=== PATIENT | male | born 1955 | race Caucasian/White ===

== ENCOUNTER 2024-05-14 07:53 | Inpatient (IN) | payer OTHER ==
[~2024-05-14] VITALS: Ht 182.9 cm; Wt 101.5 kg
[2024-05-14] VITALS (8 sets, daily range): BP systolic 119; BP diastolic 79; PULSE 79–94; RESP 13–20; TEMP 98.2; O2SAT 95–100
[2024-05-14] MEDS: DexAMETHasone SOD PHOS 10MG/1ML VIAL INJ IV ONE (08:15)
[2024-05-14 08:17] LABS: Base Excess -2.2 mmol/L (-2.0-3.0)
[2024-05-14] MEDS: ALBUTEROL SULF 2.5 MG/0.5ML(0.5%) NEB SOLN NEB ONE (08:38)
--- NOTE | 2024-05-14 09:17 | DVH ---
CHEST RADIOGRAPH Indication: sob Technique: Single frontal view of the chest was obtained COMPARISON: None FINDINGS: Lines and Tubes: None Lungs: Retrocardiac opacity may reflect atelectasis/ scarring although superimposed pneumonia difficu lt to exclude. Pleura: No effusion. No pneumothorax. Cardiomediastinal contours: Mild cardiomegaly. Bones: Unremarkable IMPRESSION: Retrocardiac opacity may reflect atelectasis/ scarring although superimposed pneumonia difficult to e xclude.
--- NOTE | 2024-05-14 09:42 | ED.PDOC ---
History of Present Illness HPI Comments 68 y/o M, with a Hx of COPD and CHF, is BIBA for c/o shortness of breath, today. Per EMS report, patient endorses on sudden and unprovoked onset of symptoms that awoke him from his sleep, this morning, at around 0700, with no relief or improvement with at-home albuterol breathing Tx use. Patient was found on scene with a SpO2 of 80% RA and was given DuoNeb breathing Tx (2.5mg Albuterol and 0.5mg Atrovent) in addition to being placed on CPAP at 10lpm O2, due to work of breathing, en route, with SpO2 increasing to 94%. Upon arrival to ED, patient endorses additional c/o throat irritation. Patient has no Hx of previous intubation in the past. Patient reports no recent strenuous activities, injuries, sick contact, travel, or substance use along with any additional pertinent or relevant Hx at time of assessment. He denies having any chest pain, cough, palpitations, fever, chills, or other associated symptoms or modifiers at this time. Chief Complaint: Shortness of Breath Time Seen by MD: 08:00 Reviewed Notes: Nurses Notes, Bicycle Subassembler Notes, Medications, Allergies Allergies: Coded Allergies: NO KNOWN ALLERGIES (Unverified , 05/14/24) Information Source: Patient, Emergency Med Personnel Mode of Arrival: EMS Severity: Moderate Timing: Hours Duration: Since onset Prehospital treatment: 12 Lead EKG, Breathing Tx (2.5 mg Albuterol, 0.5mg Atrovent ), Tube Fitter, C-Pap Past Medical History PAST MEDICAL HISTORY: CHF, COPD Surgical History: Denies all surgeries Family History Family History: Unknown Social History Smoker: Non-Smoker Alcohol: Denies ETOH Use Drugs: Denies Drug Use Lives In: Home Constitutional: denies: chills, diaphoresis, fatigue, fever, malaise, sweats, weakness, others EENTM: denies: blurred vision, double vision, ear bleeding, ear discharge, ear drainage, ear pain, ear ringing, eye pain, eye redness, hearing loss, mouth pain, mouth swelling, nasal discharge, nose bleeding, nose congestion, nose pain, photophobia, tearing, throat pain, throat swelling, voice changes, others Respiratory: reports: SOB at rest, shortness of breath, wheezing; denies: cough, hemoptysis, orthopnea, SOB with excertion, stridor, others Cardiovascular: denies: chest pain, dizzy spells, diaphoresis, Dyspnea on exertion, edema, irregular heart beat, left arm pain, lightheadedness, palpitations, PND, syncope, others Gastrointestinal: denies: abdomen distended, abdominal pain, blood streaked bowels, constipated, diarrhea, dysphagia, difficulty swallowing, hematemesis, melena, nausea, poor appetite, poor fluid intake, rectal bleeding, rectal pain, vomiting, others Genitourinary: denies: burning, dysuria, flank pain, frequency, hematuria, incontinence, penile discharge, penile sore, pain, testicle pain, testicle swelling, urgency, others Neurological: denies: dizziness, fainting, headache, left sided numbness, left sided weakness, numbness, paresthesia, pre-existing deficit, right sided numbness, right sided weakness, seizure, speech problems, tingling, tremors, weakness, others Musculoskeletal: denies: back pain, gout, joint pain, joint swelling, muscle pain, muscle stiffness, neck pain, others Integumetry: denies: bruises, change in color, change in hair/nails, dryness, laceration, lesions, lumps, rash, wounds, others Allergic/Immunocompromised: denies: Difficulty Healing, Frequent Infections, Hives, Itching, others Hematologic/Lymphatic: denies: anemia, blood clots, easy bleeding, easy bruising, swollen glands, others Endocrine: denies: excessive hunger, excessive sweating, excessive thirst, excessive urination, flushing, intolerance to cold, intolerance to heat, unexplained weight gain, unexplained weight loss, others Psychiatric: denies: anxiety, bipolar disorder, depression, hopeless, panic disorder, schizophrenia, sleepless, suicidal, others All Other Systems: Reviewed and Negative (see HPI) Physical Exam General Appearance: Moderate Distress, Obese HEENT: Normal ENT Inspection, Pharynx Normal, TMs Normal Neck: Full Range of Motion, Non-Tender, Normal, Normal Inspection Respiratory: Chest Non-Tender, Decreased Breath Sounds (diminished lung sounds at bases bilaterally), No Accessory Muscle Use, Other (on BIPAP placed by EMS en route) Cardiovascular: No Edema, No JVD, No Murmur, No Gallop, Normal Peripheral Pulses, Regular Rate/Rhythm Breast Exam: Deferred Gastrointestinal: No Organomegaly, Non Tender, No Pulsatile Mass, Normal Bowel Sounds, Soft Genitalia: Deferred Pelvic: Deferred Rectal: Deferred Extremities: Leg edema (trace pitting bilateral edema to lower extremities ), No calf tenderness, Normal capillary refill, Normal range of motion, Non-tender Musculoskeletal : Apperance: Normal Neurologic: Alert, spindle frame carver II-XII nml as Tested, No Motor Deficits, Normal Affect, Normal Mood, No Sensory Deficits Cerebellar Function: Normal Reflexes: Normal Skin: Dry, Normal Color, Warm Lymphatic: No Adenopathy Was a procedure done? Was a procedure done?: No EKG EKG : Pulse Rate (adult): 83 [place]: Normal Cardiac Rhythm: NSR Block: RBBB Hypertrophy: None ST: Normal Comments artifacts present, ST changes absent Differential Dx Considerations may include: COPD exacerbation, PNA, bronchitis, Covid19, URI, viral syndrome, pleural effusions X-Ray, Labs, Meds, VS Vital Signs Date Time Temp Pulse Resp B/P (MAP) Pulse Ox O2 Delivery O2 Flow Rate FiO2 05/14/24 10:16 84 15 129/79 05/14/24 10:04 83 05/14/24 09:00 98.2 79 15 119/79 100 4.0 36 98.2 05/14/24 08:30 100 Non-Rebreather 15.0 05/14/24 08:30 79 15 100 05/14/24 08:30 100 Non-Rebreather 15 N/A 05/14/24 08:17 98.2 72 20 119/79 (92) 95 05/14/24 08:07 70 Lab Test 05/14/24 10:10 05/14/24 09:36 05/14/24 08:09 Range/Units Troponin I High Sensitivity 9 8 </=54 ng/L White Blood Count 9.9 4.4-10.8 10^3/uL Red Blood Count 4.19 L 4.5-5.90 10^6/uL Hemoglobin 12.3 L 13.5-17.5 g/dL Hematocrit 37.5 L 41.0-53.0 % Mean Corpuscular Volume 89.6 80.0-100.0 fL Mean Corpuscular Hemoglobin 29.4 28.0-32.0 pg Mean Corpuscular Hemoglobin Concent 32.8 32.0-36.0 g/dL Red Cell Distribution Width 15.5 H 11.8-14.3 % Platelet Count 275 140-450 10^3/uL Mean Platelet Volume 8.0 6.9-10.8 fL Neutrophils (%) (Auto) 76.4 37.0-80.0 % Lymphocytes (%) (Auto) 17.3 10.0-50.0 % Monocytes (%) (Auto) 5.4 0.0-12.0 % Eosinophils (%) (Auto) 0.7 0.0-7.0 % Basophils (%) (Auto) 0.2 0.0-2.0 % Neutrophils # (Auto) 7.6 1.6-8.6 10 ^3/uL Lymphocytes # (Auto) 1.7 0.4-5.4 10 ^3/uL Monocytes # (Auto) 0.5 0-1.3 10 ^3/uL Eosinophils # (Auto) 0.1 0-0.8 10 ^3/uL Basophils # (Auto) 0 0-0.2 10 ^3/uL Nucleated Red Blood Cells 0.0 % Sodium Level 148 H 136-145 mmol/L Potassium Level 3.0 L 3.5-5.1 mmol/L Chloride Level 114 H 98-107 mmol/L Carbon Dioxide Level 23 20-31 mmol/L Anion Gap 11 5-15 Blood Urea Nitrogen 11 9-23 mg/dL Creatinine 0.93 0.700-1.30 mg/dL Glomerular Filtration Rate Calc 90 >90 mL/min BUN/Creatinine Ratio 11.8 10.0-20.0 Serum Glucose 99 74-106 mg/dL Calcium Level 9.2 8.7-10.4 mg/dL Total Bilirubin 0.7 0.2-1.0 mg/dL Aspartate Amino Transferase (AST) 16 13-40 U/L Alanine Aminotransferase (ALT) 25 7-40 U/L Alkaline Phosphatase 119 H 46-116 U/L Total Protein 6.3 5.7-8.2 g/dL Albumin 3.9 3.2-4.8 g/dL Blood Gas Specimen Type Arterial Blood Gas Sample Site Right radial Blood Gas Patient Temperature 37.0 Arterial Blood Date Drawn [id number] Arterial Blood pH 7.438 7.350-7.450 Arterial Blood Partial Pressure CO2 32.0 L 35.0-48.0 mmHg Arterial Blood Partial Pressure O2 177.8 H 83.0-108.0 mmHg Arterial Blood HCO3 21.1 21.0-28.0 mmol/L Arterial Blood Oxygen Saturation 99.2 H 94.0-98.0 % Arterial Blood Base Excess -2.2 L -2.0-3.0 mmol/L Arterial Blood Oxyhemoglobin 97.9 94.0-98.0 % Arterial Blood Carboxyhemoglobin 1.0 0.5-1.5 % Arterial Blood Methemoglobin 0.3 0.0-1.5 % Adam Test Yes Blood Gas Total Hemoglobin 12.80 L 13.5-17.5 g/dL Blood Gas Liter Flow 15.00 Blood Gas Modality Mask - nrb FiO2 % 100.0 Current Medications Medications (Trade) Dose Ordered Sig/Melvin Route Start Time Stop Time Status Last Admin Albuterol (Ventolin Medneb) 20 mg ONCE ONCE NEB 05/14/24 08:15 05/14/24 08:16 DC 05/14/24 08:38 Dexamethasone Sodium Phosphate (Decadron Injection) 10 mg ONCE ONCE IV 05/14/24 08:15 05/14/24 08:16 DC 05/14/24 08:15 Morphine Sulfate 4 mg ONCE ONCE IV 05/14/24 09:30 05/14/24 09:33 DC 05/14/24 10:16 Ondansetron HCl (Zofran) 4 mg ONCE ONCE IV 05/14/24 09:30 05/14/24 09:33 DC 05/14/24 10:16 [place] [address] Ph: [phone] DIAGNOSTIC IMAGING Diagnostic Imaging Report : [id number] Signed PATIENT: SURINDER LYNN ACCT: [id number] UNIT: [id number] : 1955 LOC: ER ROOM / BED: / AGE / SEX: 68 / M ADM STATUS: REG ER SERVICE 3 ORDERING PHYSICIAN: JARED NUNO MD PROCEDURE(s): CXRP - CHEST PORTABLE REASON: sob ORDER NUMBER(s): [id number], ACCESSION NUMBER(s): [id number] CHEST RADIOGRAPH Indication: sob Technique: Single frontal view of the chest was obtained COMPARISON: None FINDINGS: Lines and Tubes: None Lungs: Retrocardiac opacity may reflect atelectasis/ scarring although superimposed pneumonia difficult to exclude. Pleura: No effusion. No pneumothorax. Cardiomediastinal contours: Mild cardiomegaly. Bones: Unremarkable IMPRESSION: Retrocardiac opacity may reflect atelectasis/ scarring although superimposed pneumonia difficult to exclude. ATED BY: MARY DRAKE MD DICTATED DATE/TIME: 05/14/24914 SIGNED BY: MARY DRAKE MD SIGNED DATE/TIME: 05/14/24914 CC: 68-year-old male presents here with COPD exacerbation. Patient presented on CPAP by EMS. He was immediately placed on BiPAP. ABG was performed. Patient was given albuterol 20 mg. Respiratory therapist at bedside taking care patient. At this time ABG generally well-appearing. Patient was taken off BiPAP and placed on 10 L Oxymizer. I evaluated the patient clinically he multiple times throughout his ED stay. Patient had improved. Patient was breathing much more comfortably than prior. Patient was given dexamethasone here in the ER. Blood work has been done which demonstrates significant abnormalities. Including hypernatremia hypokalemia, and high chloride at 114. Troponin negative. EKG with no significant ST changes. I spoke to [place] physician Dr. Jewell at 10:15 a.m.. Given patient is still on 10 L Oxymizer patient unstable for transfer. Authorization [id number] . At this time our hospitalist team has been consulted. Time of 1ST Reevaluation: 08:15 Reevaluation 1ST: Unchanged Time of 2ND Reevaluation: 10:00 Reevaluation 2ND: Improved Consultation: Other (Respiratory therapist, Shahriar) Patient Education/Counseling: Diagnosis, Treatment Family Education/Counseling: No Family Present Departure 1 Departure Time of Disposition: 08:30 Impression: Primary Impression: COPD exacerbation Additional Impressions: Hypernatremia Hypokalemia Hyperchloremia Disposition: ADMITTED INPATIENT Admit to: Tele Condition: Guarded Critical Care Note Critical Care Time?: Yes (45 min-critical care time only) Critical care comment: Time spent evaluating the patient immediately upon his arrival to the ER, managing vent settings, managing oxygen, frequent evaluations of the patient, coordinating care with the respiratory therapist, speaking to [place] physician, admitting the patient Stability Stability form required: No Heart Score Heart Score: Heart Score Response (Comments) Value History Slightly Suspicious 0 EKG Normal 0 Age >65 2 Risk Factors >3 or Hx ASHD 2 Troponin Normal limit 0 Total 4 I personally scribed for JARED NUNO MD ([email or web address]) on 05/14/24 at 09:42. Electronically submitted by Dae Munoz ([email or web address]). I personally scribed for JARED NUNO MD ([email or web address]) on 05/14/24 at 10:04. Electronically submitted by Dae Munoz ([email or web address]). JARED NUNO MD May 14, 2024 09:42
[2024-05-14 09:49] LABS: Basophils # (auto) 0 10 ^3/uL (0-0.2); Basophils % (auto) 0.2 % (0.0-2.0); Eosinophils # (auto) 0.1 10 ^3/uL (0-0.8); Eosinophils % (auto) 0.7 % (0.0-7.0); Hematocrit 37.5 % (41.0-53.0); Hemoglobin 12.3 g/dL (13.5-17.5); Lymphocytes # (auto) 1.7 10 ^3/uL (0.4-5.4); Lymphocytes % (auto) 17.3 % (10.0-50.0); Mean Corpuscular Hemoglobin 29.4 pg (28.0-32.0); Mean Corpuscular Hgb Conc. 32.8 g/dL (32.0-36.0); Mean Corpuscular Volume 89.6 fL (80.0-100.0); Monocytes # (auto) 0.5 10 ^3/uL (0-1.3); Monocytes % (auto) 5.4 % (0.0-12.0); Neutrophils # (auto) 7.6 10 ^3/uL (1.6-8.6); Neutrophils % (auto) 76.4 % (37.0-80.0); Platelet Count (auto) 275 10^3/uL (140-450); Red Blood Cells 4.19 10^6/uL (4.5-5.90); Red Cell Distribution Width 15.5 % (11.8-14.3); White Blood Cell 9.9 10^3/uL (4.4-10.8)
[2024-05-14 10:03] LABS: Alanine Aminotransferase 25 U/L (7-40); Albumin 3.9 g/dL (3.2-4.8); Anion Gap 11 (5-15); Aspartate Aminotransferase 16 U/L (13-40); BUN/Creatinine Ratio 11.8 (10.0-20.0); Bilirubin, Total 0.7 mg/dL (0.2-1.0); Blood Urea Nitrogen 11 mg/dL (9-23); Calcium 9.2 mg/dL (8.7-10.4); Carbon Dioxide 23 mmol/L (20-31); Glucose 99 mg/dL (74-106); Total Protein 6.3 g/dL (5.7-8.2)
[2024-05-14 10:07] LABS: Chloride 114 mmol/L (98-107); Sodium 148 mmol/L (136-145)
[2024-05-14 10:08] LABS: Alkaline Phosphatase 119 U/L (46-116)
[2024-05-14] MEDS: ONDANSETRON HCL 4 MG/2 ML VIAL IV ONE (10:16)
[2024-05-14] MEDS: MORPHINE SULFATE 4 MG/ML SYR/VIAL IV ONE (10:16)
--- NOTE | 2024-05-14 13:16 | DVHHP2 ---
History of Present Illness Reason for Visit: Shortness of breath History of Present Illness Javier Andujar with a past medical history of COPD and CHF presents to the ED today for shortness of breath x1 day. Patient was brought in by EMS on their CPAP immediately placed onour BiPAP here and started on albuterol. Patient reports that when he woke up from bed today he sat up and was short of breath checked his oxygen saturation with a pulse ox and stated that it was 53% he sat at the edge of the bed and tried to allow it to recover only to come up to about 60%. Patient states that he frequently gets short of breath but eventually recovered immediately afterwards. He stated he walked from his bathroom to the bed and sat down because he felt his breathing progressively getting worse. He stated that this time around it felt worse and as though his throat was closing up, so he immediately called 911. Patient reports that he uses a CPAP at night to help with his HEIDY. He states that he has been feeling sinus congestion and when he puts on his CPAP it usually helps. Patient reports that he sees a maintenance custodian at [facility]. He also reports that he has had 6-7 exacerbations this year. Patient denies chest pain, fever, chills, wheezing, nausea, vomiting, and diarrhea. Cardiovascular: CHF Pulmonary: COPD Past Surgical History Left lithotripsy >20 years ago Family History: None Smoke: Quit ALCOHOL: rare Drugs: None Lives: Alone Domestic Violence: Neg Review of Systems Constitutional: No: Fever, Chills, Sweats, Weakness, Malaise, Other Eyes: No: Pain, Vision change, Conjunctivae inflammation, Eyelid inflammation, Other, Redness ENT: No: Ear pain, Ear discharge, Nose pain, Nose discharge, Nose congestion, Mouth pain, Mouth swelling, Throat pain, Throat swelling, Other Respiratory: Shortness of breath, SOB with excertion; No: Cough, Dry, Wheezing, Hemoptysis, Pleuritic Pain, Sputum, Wheezing, Other Cardiovascular: No: Chest Pain, Palpitations, Orthopnea, Paroxysmal Noc. Dyspnea, Edema, Lt Headedness, Other Gastrointestinal: No: Nausea, Vomiting, Abdominal Pain, Diarrhea, Constipation, Melena, Hematochezia, Other Genitourinary: No Dysuria, No Frequency, No Incontinence, No Hematuria, No Retention, No Other Musculoskeletal: No: other, neck pain, shoulder pain, arm pain, back pain, hand pain, leg pain, foot pain Skin: No: Rash, Lesions, Jaundice, Bruising, Other Neurological: No: Weakness, Numbness, Incoordination, Change in speech, Confusion, Seizures, Other Allergies: Coded Allergies: NO KNOWN ALLERGIES (Unverified , 05/14/24) Exam Vital Signs Vital Signs Date Time Temp Pulse Resp B/P (MAP) Pulse Ox O2 Delivery O2 Flow Rate FiO2 05/14/24 10:50 80 15 116/61 05/14/24 09:00 98.2 100 4.0 36 98.2 05/14/24 08:30 Non-Rebreather General Appearance: Alert, Oriented X3, Cooperative, mild distress HEENT: Atraumatic, PERRLA, EOMI, Mucous membr. moist/pink Respiratory: Other (Diminished) Cardiovascular: Normal S1, Normal S2 Abdominal: Normal bowel sounds, Soft, No tenderness, No hepatospenomegaly, No masses Extremities: No clubbing, No cyanosis, No edema, Normal pulses, No tenderness/swelling Skin: No rashes, No breakdown, No significant lesion Neuro: Normal gait, Normal speech, Strength at 5/5 X4 ext, Normal tone, Sensation intact Psych/Mental Status: Mental status NL, Mood NL Labs/Xrays Labs Test 05/14/24 10:10 05/14/24 09:36 05/14/24 08:09 Range/Units Troponin I High Sensitivity 9 </=54 ng/L White Blood Count 9.9 4.4-10.8 10^3/uL Red Blood Count 4.19 L 4.5-5.90 10^6/uL Hemoglobin 12.3 L 13.5-17.5 g/dL Hematocrit 37.5 L 41.0-53.0 % Mean Corpuscular Volume 89.6 80.0-100.0 fL Mean Corpuscular Hemoglobin 29.4 28.0-32.0 pg Mean Corpuscular Hemoglobin Concent 32.8 32.0-36.0 g/dL Red Cell Distribution Width 15.5 H 11.8-14.3 % Platelet Count 275 140-450 10^3/uL Mean Platelet Volume 8.0 6.9-10.8 fL Neutrophils (%) (Auto) 76.4 37.0-80.0 % Lymphocytes (%) (Auto) 17.3 10.0-50.0 % Monocytes (%) (Auto) 5.4 0.0-12.0 % Eosinophils (%) (Auto) 0.7 0.0-7.0 % Basophils (%) (Auto) 0.2 0.0-2.0 % Neutrophils # (Auto) 7.6 1.6-8.6 10 ^3/uL Lymphocytes # (Auto) 1.7 0.4-5.4 10 ^3/uL Monocytes # (Auto) 0.5 0-1.3 10 ^3/uL Eosinophils # (Auto) 0.1 0-0.8 10 ^3/uL Basophils # (Auto) 0 0-0.2 10 ^3/uL Nucleated Red Blood Cells 0.0 % Sodium Level 148 H 136-145 mmol/L Potassium Level 3.0 L 3.5-5.1 mmol/L Chloride Level 114 H 98-107 mmol/L Carbon Dioxide Level 23 20-31 mmol/L Anion Gap 11 5-15 Blood Urea Nitrogen 11 9-23 mg/dL Creatinine 0.93 0.700-1.30 mg/dL Glomerular Filtration Rate Calc 90 >90 mL/min BUN/Creatinine Ratio 11.8 10.0-20.0 Serum Glucose 99 74-106 mg/dL Calcium Level 9.2 8.7-10.4 mg/dL Total Bilirubin 0.7 0.2-1.0 mg/dL Aspartate Amino Transferase (AST) 16 13-40 U/L Alanine Aminotransferase (ALT) 25 7-40 U/L Alkaline Phosphatase 119 H 46-116 U/L Total Protein 6.3 5.7-8.2 g/dL Albumin 3.9 3.2-4.8 g/dL Blood Gas Specimen Type Arterial Blood Gas Sample Site Right radial Blood Gas Patient Temperature 37.0 Arterial Blood Date Drawn [id number] Arterial Blood pH 7.438 7.350-7.450 Arterial Blood Partial Pressure CO2 32.0 L 35.0-48.0 mmHg Arterial Blood Partial Pressure O2 177.8 H 83.0-108.0 mmHg Arterial Blood HCO3 21.1 21.0-28.0 mmol/L Arterial Blood Oxygen Saturation 99.2 H 94.0-98.0 % Arterial Blood Base Excess -2.2 L -2.0-3.0 mmol/L Arterial Blood Oxyhemoglobin 97.9 94.0-98.0 % Arterial Blood Carboxyhemoglobin 1.0 0.5-1.5 % Arterial Blood Methemoglobin 0.3 0.0-1.5 % Adam Test Yes Blood Gas Total Hemoglobin 12.80 L 13.5-17.5 g/dL Blood Gas Liter Flow 15.00 Blood Gas Modality Mask - nrb FiO2 % 100.0 CHEST RADIOGRAPH Indication: sob Technique: Single frontal view of the chest was obtained COMPARISON: None FINDINGS: Lines and Tubes: None Lungs: Retrocardiac opacity may reflect atelectasis/ scarring although superimposed pneumonia difficult to exclude. Pleura: No effusion. No pneumothorax. Cardiomediastinal contours: Mild cardiomegaly. Bones: Unremarkable IMPRESSION: Retrocardiac opacity may reflect atelectasis/ scarring although superimposed pneumonia difficult to exclude. Assessment/Plan Assessment/Plan Assessment: COPD exacerbation secondary to suspected pneumonia Hypokalemia Hypernatremia History of HEIDY CHF HTN Plan: Admit to [facility] Oxygen prn Respiratory treatments BiPAP Chest x-ray noted Replete lytes Pain management IV antibiotics steroids Diet as tolerated Monitor labs UA Home medications reconciled Plan discussed with: Patient Date of Service: May 14, 2024 Billing Provider: ANGELA DON Common Visit Codes: [id number] INP/OBS CARE (HIGH) ANGELA DON May 14, 2024 13:16
[2024-05-14] MEDS: IPRATROPIUM BROM 0.5 MG/2.5ML INH SOL NEB SCH (13:44)
[2024-05-14] MEDS: ALBUTEROL SULF 2.5 MG/0.5ML(0.5%) NEB SOLN NEB SCH (13:45)
[2024-05-14] MEDS ORDERED: DOCUSATE SOD 100 MG CAP PO PRN (14:00)
[2024-05-14] MEDS: POTASSIUM CHL 20 Meq TABLET PO ONE (14:43)
[2024-05-14] MEDS: AZITHROMYCIN 250 MG TAB PO ONE (14:43)
[2024-05-14] MEDS: cefTRIAXone 1GM/50ML D5W 50 ML IV ONE (14:44)
[2024-05-14] MEDS: HYDROcodone-ACET 5/325MG TAB PO PRN (16:27)
--- NOTE | 2024-05-14 17:22 | ECG ---
[facility] Test Date: 2024-05-14 Test Time: 09:54:22 Pat Name: SURINDER LYNN Department: ER Room: [address] [place] [address] Gender: M Hearing Aid Technician: GENEVA : 1955 Requested By: JARED NUNO Order Number: [id number] Reading MD: Teo Leroy Measurements Intervals [place] Rate: 83 P: 61 [place]: 191 QRS: -4 QRSD: 123 T: 30 QT: 399 QTc: 469 Interpretive Statements Sinus rhythm Atrial premature complex Right bundle branch block Electronically Signed On 05-20-2024 12:17:48 PST by Teo Leroy Please click the below link to view image of tracing.
[2024-05-14] MEDS: ONDANSETRON HCL 4 MG/2 ML VIAL IV PRN (20:18)
[2024-05-14] MEDS: MORPHINE SULFATE INJ 2 MG/ml SYRG IV PRN (20:20)
[2024-05-14] MEDS: LORazepam 0.5 MG TAB PO PRN (23:00)
[2024-05-14] MEDS: ACETAMINOPHEN 325 MG TAB PO PRN (23:00)
[2024-05-14] MEDS: ASCORBIC ACID 500 MG TAB PO SCH (23:01)
[2024-05-14] MEDS: PRAMIPEXOLE DIHYDROCHLORIDE MO 0.25 MG TAB PO ONE (23:12)
[2024-05-15] VITALS (13 sets, daily range): BP systolic 104–128; BP diastolic 60–79; PULSE 76–104; RESP 16–24; O2SAT 90–99
[2024-05-15 06:09] LABS: Basophils # (auto) 0 10 ^3/uL (0-0.2); Eosinophils # (auto) 0 10 ^3/uL (0-0.8); Hematocrit 35.2 % (41.0-53.0); Hemoglobin 11.2 g/dL (13.5-17.5); Lymphocytes # (auto) 0.9 10 ^3/uL (0.4-5.4); Lymphocytes % (auto) 6.6 % (10.0-50.0); Mean Corpuscular Hemoglobin 28.4 pg (28.0-32.0); Mean Corpuscular Hgb Conc. 31.8 g/dL (32.0-36.0); Mean Corpuscular Volume 89.5 fL (80.0-100.0); Monocytes # (auto) 0.4 10 ^3/uL (0-1.3); Neutrophils # (auto) 11.8 10 ^3/uL (1.6-8.6); Neutrophils % (auto) 90.4 % (37.0-80.0); Nucleated Red Blood Cells % 0.1 %; Platelet Count (auto) 268 10^3/uL (140-450); Red Blood Cells 3.93 10^6/uL (4.5-5.90); Red Cell Distribution Width 15.5 % (11.8-14.3); White Blood Cell 13.1 10^3/uL (4.4-10.8)
[2024-05-15 06:18] LABS: Potassium 4.1 mmol/L (3.5-5.1)
[2024-05-15 06:19] LABS: Anion Gap 8 (5-15); Carbon Dioxide 25 mmol/L (20-31)
[2024-05-15 06:20] LABS: Calcium 9.2 mg/dL (8.7-10.4)
[2024-05-15 06:25] LABS: BUN/Creatinine Ratio 20.7 (10.0-20.0); Blood Urea Nitrogen 18 mg/dL (9-23); Chloride 114 mmol/L (98-107); Glucose 114 mg/dL (74-106); Sodium 147 mmol/L (136-145)
[2024-05-15] MEDS: cefTRIAXone 1GM/50ML D5W 50 ML IV SCH (09:03)
[2024-05-15] MEDS: MULTIPLE VITAMIN TAB PO SCH (09:54)
[2024-05-15] MEDS: ZINC SULFATE 220mg CAP or TAB PO SCH (09:54)
[2024-05-15] MEDS: AZITHROMYCIN 250 MG TAB PO SCH (09:54)
[2024-05-15] MEDS: methylPREDNISolone SOD SUCC 40 MG/ML VL IV SCH (09:56)
[2024-05-15] MEDS: PRAMIPEXOLE DIHYDROCHLORIDE MO 0.25 MG TAB PO SCH (09:57)
--- NOTE | 2024-05-15 13:18 | DVHPN2 ---
Reviewed: Care Plan, H&P, Labs, Medications, Previous Orders, Radiology Changes from previous H/P or p: No Changes Eyes: No Pain, No Vision change, No Conjunctivae inflammation, No Eyelid inflammation, No Other, No Redness ENT: No Ear pain, No Ear discharge, No Nose pain, No Nose discharge, No Nose congestion, No Mouth pain, No Mouth swelling, No Throat pain, No Throat swelling, No Other Cardiovascular: No Chest Pain, No Palpitations, No Orthopnea, No Paroxysmal Noc. Dyspnea, No Edema, No Lt Headedness, No Other Respiratory: No Cough, No Dry; Shortness of breath, SOB with excertion; No Wheezing, No Hemoptysis, No Pleuritic Pain, No Sputum, No Other Gastrointestinal: No Nausea, No Vomiting, No Abdominal Pain, No Diarrhea, No Constipation, No Melena, No Hematochezia, No Other Genitourinary: No Dysuria, No Frequency, No Incontinence, No Hematuria, No Retention, No Other Musculoskeletal: No other, No neck pain, No shoulder pain, No arm pain, No back pain, No hand pain, No leg pain, No foot pain Skin: No Rash, No Lesions, No Jaundice, No Bruising, No Other Objective Vitals Vital Signs Date Time Temp Pulse Resp B/P (MAP) Pulse Ox O2 Delivery O2 Flow Rate FiO2 05/15/24 12:01 96 18 104/60 (75) 91 05/15/24 10:23 Bi-pap/CPAP 05/15/24 10:23 40 40 05/15/24 07:40 6 05/15/24 07:35 98.1 98.1 Medications Current Medications Medications Dose Ordered Sig/Melvin Route Start Time Stop Time Status Last Admin Dose Admin Ceftriaxone Sodium 50 ml @ 100 mls/hr DAILY@09 IV 05/15/24 09:00 05/15/24 09:03 100 MLS/HR Albuterol 2.5 mg Q4HWA NEB 05/14/24 14:00 05/15/24 10:23 2.5 MG Ipratropium [place] 0.5 mg Q4HWA NEB 05/14/24 14:00 05/15/24 10:23 0.5 MG Methylprednisolone Sodium Succinate 40 mg DAILY IV 05/15/24 10:00 05/15/24 09:56 40 MG Azithromycin 500 mg DAILY PO 05/15/24 10:00 12/8/24 09:54 500 MG Acetaminophen/ Hydrocodone Bitart 1 tab Q4HP PRN PO 05/14/24 14:00 05/14/24 23:00 1 TAB Ondansetron HCl 4 mg Q4HP PRN IV 05/14/24 14:00 05/14/24 20:18 4 MG Docusate Sodium 100 mg BIDPRN PRN PO 05/14/24 14:00 Zinc Sulfate 220 mg DAILY PO 05/15/24 10:00 05/15/24 09:54 220 MG Ascorbic Acid 500 mg BID PO 05/14/24 22:00 05/15/24 09:53 500 MG Multivitamins 1 tab DAILY PO 05/15/24 10:00 05/15/24 09:54 1 TAB Acetaminophen 650 mg Q6HP PRN PO 05/14/24 14:00 05/14/24 23:00 650 MG Morphine Sulfate 2 mg Q4HPRN PRN IV 05/14/24 14:00 05/14/24 20:20 2 MG Pramipexole Dihydrochloride 0.75 mg BID PO 05/15/24 10:00 05/15/24 09:57 0.75 MG Lorazepam 0.5 mg Q8HP PRN PO 05/14/24 22:45 05/15/24 09:53 0.5 MG Laboratory Results Laboratory Tests 05/15/24 05:21 Chemistry Test 05/15/24 05:21 Calcium Level 9.2 mg/dL (8.7-10.4) Labs and/or images reviewed: Labs reviewed by me, Image(s) reviewed by me Assessment/Plan Assessment/Plan Acute hypoxic respiratory failure: Oxygen by nasal cannula Acute COPD exacerbation: Albuterol Atrovent Solu-Medrol consult for Dr. Tarango Acute CHF exacerbation: Lasix consult for Dr. Vázquez, troponin negative x3 Left lower lobe community-acquired pneumonia: Rocephin azithromycin Kate test pending Flu test pending History of left lithotripsy 20 years ago Acute hypokalemia potassium 3.0 Time spent 65 minutes Patient is full code Advanced care planning time 20 minutes Plan discussed with: Patient My Orders Orders - LETICIA WILKINSON MD Procedure Category Date Status Time B-Type Natriuretic LAB 05/15/24 Logged Peptide 13:10 Echo 2d Mode Cardiac US 05/15/24 Logged DOP 13:10 Date of Service: May 15, 2024 Billing Provider: LETICIA WILKINSON MD Common Visit Codes: [id number] CARE 30-74 MIN LETICIA WILKINSON MD May 15, 2024 13:18
[2024-05-15] MEDS ORDERED: FUROSEMIDE 40 MG/4 ML VIAL IV ONE (13:30)
--- NOTE | 2024-05-15 13:57 | DVHSR ---
APPROVED REPORT EXAM: Two-dimensional and M-mode echocardiogram with Doppler and color Doppler. Blood Pressure: 104/60 mmHg INDICATION CHF exacerbation RISK FACTORS Height: 70, Weight: 223 DIMENSIONS LVDd4.9 (3.8-5.7cm)LA (2D)4.1 (1.9-4.0cm)Aortic Root4.4 (2.0-3.7cm) LVDs3.3 (2.5-4.0cm)LA (MM) (1.9-4.0cm)Aortic Cusp Exc1.3 (1.5-2.0cm) EF (%) 62.0 (55-70%)Rt. Atrium4.7 (1.9-4.0cm)Asc. Aorta cm Mitral Valve MitralMitral Stenosis E wave0.75m/sMV Mean GR.mmHg A wave0.95m/sMV Peak GR.47mmHg E/A ratio0.82D MVAcm2 DECEL [id number] 1/2 [id number] IVRTmsDop MVA3.89cm2 Aortic Valve Aortic ValveAortic Stenosis V11.60m/Kathryn Mean GR.6mmHg V21.80m/Kathryn Peak GR.13mmHg LVOT Diameter2.3 (1.8-2.4cm)Doppler AVA3.69cm2 Pulmonic Valve V21.01m/s Tricuspid Valve TR Velocity4.09m/s [id number] Conclusion Normal left ventricular size and dimension. Normal left ventricular systolic function estimated ejec tion fraction for 65%. There is a grade 1 diastolic dysfunction. Borderline dilated right ventricle. Moderately reduced left ventricular systolic function severely e levated right ventricular systolic pressure 89 mm of mercury. Moderately dilated right atrium. Normal-sized left atrium. Normal aortic valve structure and function. Normal mitral valve structure and function. There is and moderate tricuspid valve regurgitation. There is mild pulmonary valve regurgitation. No significant pericardial effusion.
[2024-05-15] MEDS: FUROSEMIDE 40 MG/4 ML VIAL IV ONE (14:39)
--- NOTE | 2024-05-15 18:57 | DVHINCON2 ---
Date of service: May 15, 2024 Referring Physician XIOMARA Wright Reason for Consultation Acute hypoxic respiratory failure, COPD exacerbation. History of Present Illness A 68-year-old man with a past medical history of COPD and CHF who presented to the ED on 05/14/24 with c/o shortness of breath x1 day. Patient was brought in by EMS, immediately placed on BiPAP here and started on albuterol. Patient reported that when he woke up on day of presentation, he was short of breath and O2 sat was 53%; he sat at the edge of the bed and tried to allow it to recover only to come up to about 60%. Patient states that he frequently gets short of breath but eventually recovers immediately afterwards. He walked from his bathroom to the bed and sat down because he felt his breathing progressively getting worse. He stated that this time around it felt worse and as though his throat was closing up, so he immediately called 911. Patient uses a CPAP at night to help with his HEIDY. He states that he has been feeling sinus congestion and when he puts on his CPAP, it usually helps. 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 He also reports that he has had 6-7 exacerbations this year. Patient denies chest pain, fever, chills, wheezing, nausea, vomiting, or diarrhea. Patient was admitted for further care and pulmonary consultation is requested for evaluation and management of acute hypoxic respiratory failure and COPD exacerbation. Review of Systems: 14-point review of systems negative unless otherwise noted above. Past Medical History: COPD and CHF Past Surgical History: Left lithotripsy >20 years ago Medications: Reviewed. Allergies: No known drug allergies. Family History: No family history of premature CAD. No family history of lung disorders. Social History: Ex-smoker. Rare alcohol use. No illicit drug use. Allergies: Coded Allergies: Metoclopramide (Verified Allergy, Unknown, 05/18/24) Home Meds Reported Medications Apixaban Base (ELIQUIS) 5 Mg Tab, 5 MG PO DAILY, TAB 05/15/24 Atorvastatin Calcium (ATORVASTATIN CALCIUM) 20 Mg Tab, 1 TAB PO HS, #90 TAB 1 Refill 05/15/24 Famotidine (Famotidine) 20 Mg Tab, 40 MG PO BID, MG 05/15/24 Potassium Chloride (POTASSIUM CHLORIDE CR) 10 Meq Tb, 2 TAB PO BID, #30 TAB 5 Refills 05/15/24 Pramipexole Dihydrochloride (Mirapex Er) 0.75 Mg Tab, 0.75 MG PO, TAB 05/15/24 Metoprolol Tartrate (Metoprolol Tartrate) 25 Mg Tab, 25 MG PO BID for 30 Days, MG 05/15/24 Furosemide (Furosemide) 40 Mg Tab, 40 MG PO DAILY, MG 05/15/24 Ezetimibe (Zetia) 10 Mg Tab, 1 TAB PO DAILY, #30 TAB 5 Refills 05/15/24 Venlafaxine Hydrochloride (Venlafaxine Hcl) 37.5 Mg Tab, 130 TAB PO DAILY, #60 TAB 05/15/24 Venlafaxine Hydrochloride (Venlafaxine Hcl) 37.5 Mg Tab, 1 TAB PO DAILY, #60 TAB 05/15/24 Quetiapine Fumerate (QUETIAPINE FUMARATE) 100 Mg Tab, 25 MG PO BID for 30 Days, MG 05/15/24 Clopidogrel Bisulfate (Plavix) 75 Mg Tab, 75 MG PO, TAB 05/15/24 Sucralfate (Sucralfate) 1 Gm Tab, 1 GM PO, GM 05/15/24 Current Medications Current Medications Medications (Trade) Dose Ordered Sig/Melvin Route PRN Reason Start Time Stop Time Status Last Admin Ceftriaxone Sodium 50 ml @ 100 mls/hr DAILY@09 IV 05/15/24 09:00 05/15/24 09:03 Methylprednisolone Sodium Succinate (Solu Medrol) 40 mg DAILY IV 05/15/24 10:00 05/15/24 09:56 Azithromycin (Zithromax Tablet) 500 mg DAILY PO 05/15/24 10:00 05/15/24 09:54 Zinc Sulfate 220 mg DAILY PO 05/15/24 10:00 05/15/24 09:54 Ascorbic Acid (Vitamin C Tablet) 500 mg BID PO 05/14/24 22:00 05/15/24 09:53 Multivitamins (Mvi Tab) 1 tab DAILY PO 05/15/24 10:00 05/15/24 09:54 Pramipexole Dihydrochloride (Mirapex Tablet) 0.75 mg BID PO 05/15/24 10:00 05/15/24 09:57 Lorazepam (Ativan Tablet) 0.5 mg Q8HP PRN PO ANXIETY 05/14/24 22:45 05/15/24 09:53 Vital Signs Vital Signs Date Time Temp Pulse Resp B/P (MAP) Pulse Ox O2 Delivery O2 Flow Rate FiO2 05/15/24 18:44 97 05/15/24 18:01 17 119/88 (98) 91 05/15/24 14:11 Oxymizer 11.0 05/15/24 14:11 N/A 05/15/24 07:35 98.1 98.1 Physical Exam Gen.: Patient lying in bed in no apparent distress. On supplemental oxygen. Head: Normocephalic, atraumatic. Eyes: EOMI/PERRLA. Ears: Normal hearing. Normal anatomy. Neck/trachea: Trachea midline, supple. Nose: Normal external anatomy. Mouth: Moist mucous membranes. Chest: Decreased air entry bilaterally. No wheezing or rhonchi. Cardiovascular: Positive S1, positive S2. Regular rate and rhythm. Abdomen: Positive bowel sounds in all 4 quadrants. Soft, non-tender, non- distended. : Deferred. Rectal: Deferred. Skin: Warm, dry. Intact. Extremities: 2+ radial pulses bilaterally. No lower extremity edema. Neuro: Awake, alert, oriented x3. No gross motor or sensory deficits. Cranial nerves II through XII intact. Gait not assessed. Labs/Diagnostic Data Labs Test 05/15/24 05:21 05/14/24 10:10 05/14/24 09:36 05/14/24 08:09 Range/Units White Blood Count 13.1 #H 4.4-10.8 10^3/uL Red Blood Count 3.93 L 4.5-5.90 10^6/uL Hemoglobin 11.2 L 13.5-17.5 g/dL Hematocrit 35.2 L 41.0-53.0 % Mean Corpuscular Volume 89.5 80.0-100.0 fL Mean Corpuscular Hemoglobin 28.4 28.0-32.0 pg Mean Corpuscular Hemoglobin Concent 31.8 L 32.0-36.0 g/dL Red Cell Distribution Width 15.5 H 11.8-14.3 % Platelet Count 268 140-450 10^3/uL Mean Platelet Volume 8.6 6.9-10.8 fL Neutrophils (%) (Auto) 90.4 H 37.0-80.0 % Lymphocytes (%) (Auto) 6.6 L 10.0-50.0 % Monocytes (%) (Auto) 3.0 0.0-12.0 % Eosinophils (%) (Auto) 0.0 0.0-7.0 % Basophils (%) (Auto) 0.0 0.0-2.0 % Neutrophils # (Auto) 11.8 H 1.6-8.6 10 ^3/uL Lymphocytes # (Auto) 0.9 0.4-5.4 10 ^3/uL Monocytes # (Auto) 0.4 0-1.3 10 ^3/uL Eosinophils # (Auto) 0 0-0.8 10 ^3/uL Basophils # (Auto) 0 0-0.2 10 ^3/uL Nucleated Red Blood Cells 0.1 % Sodium Level 147 H 136-145 mmol/L Potassium Level 4.1 3.5-5.1 mmol/L Chloride Level 114 H 98-107 mmol/L Carbon Dioxide Level 25 20-31 mmol/L Anion Gap 8 5-15 Blood Urea Nitrogen 18 9-23 mg/dL Creatinine 0.87 0.700-1.30 mg/dL Glomerular Filtration Rate Calc 95 >90 mL/min BUN/Creatinine Ratio 20.7 H 10.0-20.0 Serum Glucose 114 H 74-106 mg/dL Calcium Level 9.2 8.7-10.4 mg/dL B-Type Natriuretic Peptide 373.49 0-100 pg/mL Troponin I High Sensitivity 9 </=54 ng/L Total Bilirubin 0.7 0.2-1.0 mg/dL Aspartate Amino Transferase (AST) 16 13-40 U/L Alanine Aminotransferase (ALT) 25 7-40 U/L Alkaline Phosphatase 119 H 46-116 U/L Total Protein 6.3 5.7-8.2 g/dL Albumin 3.9 3.2-4.8 g/dL Blood Gas Specimen Type Arterial Blood Gas Sample Site Right radial Blood Gas Patient Temperature 37.0 Arterial Blood Date Drawn Arterial Blood pH 7.438 7.350-7.450 Arterial Blood Partial Pressure CO2 32.0 L 35.0-48.0 mmHg Arterial Blood Partial Pressure O2 177.8 H 83.0-108.0 mmHg Arterial Blood HCO3 21.1 21.0-28.0 mmol/L Arterial Blood Oxygen Saturation 99.2 H 94.0-98.0 % Arterial Blood Base Excess -2.2 L -2.0-3.0 mmol/L Arterial Blood Oxyhemoglobin 97.9 94.0-98.0 % Arterial Blood Carboxyhemoglobin 1.0 0.5-1.5 % Arterial Blood Methemoglobin 0.3 0.0-1.5 % Adam Test Yes Blood Gas Total Hemoglobin 12.80 L 13.5-17.5 g/dL Blood Gas Liter Flow 15.00 Blood Gas Modality Mask - nrb FiO2 % 100.0 Assessment Impression: Acute hypoxic respiratory failure 2/2 AE COPD Acute exacerbation of COPD Hypokalemia Pneumonia, likely gram negative Hypernatremia Congestive heart failure Obstructive sleep apnea Hypertension Atelectasis Hx of nicotine dependence Obesity, BMI 30.3 Plan: Increased O2 requirements Improved to 6 LPM Oxymizer Titrate to keep O2 sats above 92%. Taper O2 as tolerated. BiPAP at night for HEIDY Continue bronchodilators. Continue antibiotics F/u cultures IV steroids Incentive spirometry CXR demonstrates retrocardiac opacities. Diurese as tolerated Maintain euvolemia Monitor renal function. Monitor electrolytes. Supplement as necessary. Monitor ins and outs. DVT prophylaxis. Prognosis: Poor given patient's multiple co-morbidities. Condition: Critical Rest of plan per hospitalist and other consultants. A total of 35 minutes of critical care time was spent reviewing the patient record, examining the patient, making a diagnostic and therapeutic plan, discussing this plan with the medical personnel, following up on diagnostic studies and following the patient for clinical stability excluding any and all procedures. At least 50% of this time was spent in direct, [id number] contact. Thank you, XIOMARA Wright, for allowing me to participate in this patient's care. Further recommendations will depend on the patient's clinical course. Please do not hesitate to contact me if you have any questions or concerns. This medical document was created using an electronic medical record system with [employer] dictation system. Although these documentations are being carefully reviewed, there may still be some phonetic and typographical changes. The errors are purely typographical, due to imperfection on the software pro gram, and do not reflect any compromise in the patient's medical care. Plan discussed with: Patient, Other (RN, XIOMARA Mazariegos) AYANA BASSETT MD May 15, 2024 18:57
[2024-05-15] MEDS ORDERED: EZET10TA22 PO (22:18)
[2024-05-15] MEDS ORDERED: FURO40TA4 PO (22:18)
[2024-05-15] MEDS ORDERED: CLOP75TA28 PO (22:18)
[2024-05-15] MEDS ORDERED: SUCR1TAB PO (22:18)
[2024-05-15] MEDS ORDERED: VENL1TAB97 PO (22:18)
[2024-05-15] MEDS ORDERED: QUET100T47 PO (22:18)
[2024-05-15] MEDS ORDERED: METO25TA5 PO (22:23)
[2024-05-15] MEDS ORDERED: PRAM0.752 PO (22:23)
[2024-05-15] MEDS ORDERED: ATOR20TA50 PO (22:23)
[2024-05-15] MEDS ORDERED: FAMO-12 PO (22:23)
[2024-05-15] MEDS ORDERED: POTA-36 PO (22:23)
[2024-05-15] MEDS ORDERED: APIX5TAB PO (22:23)
[2024-05-16] VITALS (12 sets, daily range): BP systolic 130; BP diastolic 80; PULSE 78–95; RESP 11–22; O2SAT 88–99
--- NOTE | 2024-05-16 09:29 | DVHINCON2 ---
Date Seen: May 16, 2024 Referring Physician MD Jace Reason for Consultation CHF History of Present Illness This is a pleasant 68-year-old man who presented to the emergency room via EMS with a chief complaint of shortness of breath for 45 minutes. Patient complains of progressive shortness of breath associated with a nonproductive cough. States he took breathing treatments at home with no relief of symptoms prompting him to call 911. Upon EMS arrival he was found with an oxygen saturation level of 80% on room air for which he was provided supplemental oxygenation. He is currently on an Oxymizer with oxygen support. Denies chest pain, palpitations, diaphoresis, dizziness, or syncopal events. He underwent a 12 lead electrocardiogram revealing a sinus rhythm with an associated right bundle branch block. Serial troponin levels are negative. 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 Significant medical history includes paroxysmal atrial fibrillation on Flecainide therapy and Eliquis, coronary artery disease status post multiple PCIs including two SHAWN on Plavix (2009, 2022), prediabetes, hypertension, dyslipidemia, COPD with O2 dependence at 4 L/min, prostate cancer status post prostatectomy and radiotherapy 2 y ago, history of tobacco use, and obesity. Past Medical History Past medical history reviewed. No other significant than mentioned above. Past Surgical History PCIs x2 including two SHAWN (2009, 2022) Prostatectomy Family History Family history reviewed. Social History Denies the use of illicit drugs, alcohol, or tobacco use. Quit tobacco use four years ago. Allergies: Coded Allergies: NO KNOWN ALLERGIES (Unverified , 05/14/24) Home Meds Reported Medications Apixaban Base (ELIQUIS) 5 Mg Tab, 5 MG PO DAILY, TAB 05/15/24 Atorvastatin Calcium (ATORVASTATIN CALCIUM) 20 Mg Tab, 1 TAB PO HS, #90 TAB 1 Refill 05/15/24 Famotidine (Famotidine) 20 Mg Tab, 40 MG PO BID, MG 05/15/24 Potassium Chloride (POTASSIUM CHLORIDE CR) 10 Meq Tb, 2 TAB PO BID, #30 TAB 5 Refills 05/15/24 Pramipexole Dihydrochloride (Mirapex Er) 0.75 Mg Tab, 0.75 MG PO, TAB 05/15/24 Metoprolol Tartrate (Metoprolol Tartrate) 25 Mg Tab, 25 MG PO BID for 30 Days, MG 05/15/24 Furosemide (Furosemide) 40 Mg Tab, 40 MG PO DAILY, MG 05/15/24 Ezetimibe (Zetia) 10 Mg Tab, 1 TAB PO DAILY, #30 TAB 5 Refills 05/15/24 Venlafaxine Hydrochloride (Venlafaxine Hcl) 37.5 Mg Tab, 130 TAB PO DAILY, #60 TAB 05/15/24 Venlafaxine Hydrochloride (Venlafaxine Hcl) 37.5 Mg Tab, 1 TAB PO DAILY, #60 TAB 05/15/24 Quetiapine Fumerate (QUETIAPINE FUMARATE) 100 Mg Tab, 25 MG PO BID for 30 Days, MG 05/15/24 Clopidogrel Bisulfate (Plavix) 75 Mg Tab, 75 MG PO, TAB 05/15/24 Sucralfate (Sucralfate) 1 Gm Tab, 1 GM PO, GM 05/15/24 Home Meds Home medications reviewed. Current Medications Current Medications Medications (Trade) Dose Ordered Sig/Melvin Route PRN Reason Start Time Stop Time Status Last Admin Methylprednisolone Sodium Succinate (Solu Medrol) 40 mg DAILY IV 05/15/24 10:00 05/15/24 09:56 Azithromycin (Zithromax Tablet) 500 mg DAILY PO 05/15/24 10:00 05/15/24 09:54 Zinc Sulfate 220 mg DAILY PO 05/15/24 10:00 05/15/24 09:54 Multivitamins (Mvi Tab) 1 tab DAILY PO 05/15/24 10:00 05/15/24 09:54 Pramipexole Dihydrochloride (Mirapex Tablet) 0.75 mg BID PO 05/15/24 10:00 05/15/24 21:40 Review of Systems Constitutional: No symptom reported Ears, Nose, & Throat: No symptom reported Eyes: No symptom reported Neurological: No symptoms reported Pulmonary/Respiratory: SOB, nonproductive cough Cardiovascular: No symptom reported Gastrointestinal: No symptom reported Genitourinary: No symptom reported Musculoskeletal: No symptom reported Skin: No symptom reported Psychiatric: No symptom reported Endocrine: No symptom reported Hemotologic/Lymphatic: No symptom reported Vital Signs Vital Signs Date Time Temp Pulse Resp B/P (MAP) Pulse Ox O2 Delivery O2 Flow Rate FiO2 05/16/24 08:00 67 21 132/78 (96) 100 05/16/24 07:06 Oxymizer 12 74 74 05/15/24 07:35 98.1 98.1 Physical Exam General Appearance: Cooperative. Well developed. Well nourished. Moderate acute respiratory distress Head Exam: Normal inspection Neck Exam: Normal inspection. Non-tender. Normal alignment Pulmonary/Respiratory: Chest non-tender. Course bilateral breath sounds. O2 via Oxymizer Cardiovascular/Chest: Regular rate and rhythm. S1, S2. Sinus rhythm with RBBB. No murmurs. No JVD. Peripheral Pulses: 2+ Radial (R). 2+ Radial (L). 2+ Pedal (R). 2+ Pedal (L) Abdominal Exam: Normal bowel sounds. Soft. Nontender. No hepatospenomegaly. No masses Ankle Exam: Negative ankle edema Lower extremities: Negative lower extremity edema Neuro/Mental Status: A&O x4. Coherent Thoughts/Psych: Normal thought pattern. Appropriate mood and affect. Good judgement and insight Appearance: Moderate acute respiratory distress Skin Exam: Normal inspection. Normal color. Warm. Dry Labs/Diagnostic Data Labs Test 05/15/24 05:21 05/14/24 10:10 05/14/24 09:36 05/14/24 08:09 Range/Units White Blood Count 13.1 #H 4.4-10.8 10^3/uL Red Blood Count 3.93 L 4.5-5.90 10^6/uL Hemoglobin 11.2 L 13.5-17.5 g/dL Hematocrit 35.2 L 41.0-53.0 % Mean Corpuscular Volume 89.5 80.0-100.0 fL Mean Corpuscular Hemoglobin 28.4 28.0-32.0 pg Mean Corpuscular Hemoglobin Concent 31.8 L 32.0-36.0 g/dL Red Cell Distribution Width 15.5 H 11.8-14.3 % Platelet Count 268 140-450 10^3/uL Mean Platelet Volume 8.6 6.9-10.8 fL Neutrophils (%) (Auto) 90.4 H 37.0-80.0 % Lymphocytes (%) (Auto) 6.6 L 10.0-50.0 % Monocytes (%) (Auto) 3.0 0.0-12.0 % Eosinophils (%) (Auto) 0.0 0.0-7.0 % Basophils (%) (Auto) 0.0 0.0-2.0 % Neutrophils # (Auto) 11.8 H 1.6-8.6 10 ^3/uL Lymphocytes # (Auto) 0.9 0.4-5.4 10 ^3/uL Monocytes # (Auto) 0.4 0-1.3 10 ^3/uL Eosinophils # (Auto) 0 0-0.8 10 ^3/uL Basophils # (Auto) 0 0-0.2 10 ^3/uL Nucleated Red Blood Cells 0.1 % Sodium Level 147 H 136-145 mmol/L Potassium Level 4.1 3.5-5.1 mmol/L Chloride Level 114 H 98-107 mmol/L Carbon Dioxide Level 25 20-31 mmol/L Anion Gap 8 5-15 Blood Urea Nitrogen 18 9-23 mg/dL Creatinine 0.87 0.700-1.30 mg/dL Glomerular Filtration Rate Calc 95 >90 mL/min BUN/Creatinine Ratio 20.7 H 10.0-20.0 Serum Glucose 114 H 74-106 mg/dL Calcium Level 9.2 8.7-10.4 mg/dL B-Type Natriuretic Peptide 373.49 0-100 pg/mL Troponin I High Sensitivity 9 </=54 ng/L Total Bilirubin 0.7 0.2-1.0 mg/dL Aspartate Amino Transferase (AST) 16 13-40 U/L Alanine Aminotransferase (ALT) 25 7-40 U/L Alkaline Phosphatase 119 H 46-116 U/L Total Protein 6.3 5.7-8.2 g/dL Albumin 3.9 3.2-4.8 g/dL Blood Gas Specimen Type Arterial Blood Gas Sample Site Right radial Blood Gas Patient Temperature 37.0 Arterial Blood Date Drawn [id number] Arterial Blood pH 7.438 7.350-7.450 Arterial Blood Partial Pressure CO2 32.0 L 35.0-48.0 mmHg Arterial Blood Partial Pressure O2 177.8 H 83.0-108.0 mmHg Arterial Blood HCO3 21.1 21.0-28.0 mmol/L Arterial Blood Oxygen Saturation 99.2 H 94.0-98.0 % Arterial Blood Base Excess -2.2 L -2.0-3.0 mmol/L Arterial Blood Oxyhemoglobin 97.9 94.0-98.0 % Arterial Blood Carboxyhemoglobin 1.0 0.5-1.5 % Arterial Blood Methemoglobin 0.3 0.0-1.5 % Adam Test Yes Blood Gas Total Hemoglobin 12.80 L 13.5-17.5 g/dL Blood Gas Liter Flow 15.00 Blood Gas Modality Mask - nrb FiO2 % 100.0 Assessment Paroxysmal atrial fibrillation, on flecainide/Eliquis Coronary artery disease with history of PCIs including two SHAWN (2009, 04/2023), on Plavix Acute on chronic hypoxic respiratory failure with COPD exacerbation and pneumonia COPD with O2 dependence at 4 L/min Hypertension Dyslipidemia Obesity Plan/Recommendation Plan/Recommendation (Dr. Castellanos) The patient underwent a recent transthoracic echocardiogram revealing an EF of 65%. The patient is cardiac stable plus [place] Criteria is negative for CHF. SOB is secondary to acute on chronic respiratory failure and pneumonia. Continue Flecainide, beta-johana, Eliquis ([id number] Score of 4 points), and Plavix therapy given history of multiple stents. Follow-up with Cardiology at [place] as scheduled. There is no further cardiac work-up at this time. Please call if in need to re-consult. Thank you for allowing us to participate in this patient's care. This medical document was created using an electronic medical record system with voice recognition software and computerized dictation system. Although this document has been carefully reviewed, there might still be some phonetic and typographical errors. Occasional wrong-word or ``sound-alike substitutions may have occurred due to the inherent limitations of voice recognition software. These areas are purely typographical due to imperfections of the software programs and do not reflect any compromise in the patient's medical care. Please read the chart carefully and recognize, using context, where these substitutions have occurred. Plan discussed with: Patient, Other Date of Service: May 16, 2024 Billing Provider: NIKKI CASTELLANOS MD Cardiology Common Codes: 06593-OLYIGOG INP/OBS CARE (High) GARRETT MORRIS [facility] May 16, 2024 09:29
[2024-05-16] MEDS ORDERED: hydrALAZINE HCL 20 MG/ML VL IV PRN (11:00)
[2024-05-16] MEDS: CLOPIDOGREL BISULFATE 75 MG TAB PO ONE (11:31)
[2024-05-16] MEDS: APIXABAN 5 MG TAB PO ONE (11:32)
[2024-05-16] MEDS: VENLAFAXINE HCL 37.5MG TABLET PO ONE (12:03)
[2024-05-16] MEDS: FLECAINIDE ACETATE 50 MG TAB PO ONE (12:08)
--- NOTE | 2024-05-16 12:15 | DVHPN2 ---
Reviewed: Care Plan, H&P, Labs, Medications, Previous Orders, Radiology Changes from previous H/P or p: No Changes Eyes: No Pain, No Vision change, No Conjunctivae inflammation, No Eyelid inflammation, No Other, No Redness ENT: No Ear pain, No Ear discharge, No Nose pain, No Nose discharge, No Nose congestion, No Mouth pain, No Mouth swelling, No Throat pain, No Throat swelling, No Other Cardiovascular: No Chest Pain, No Palpitations, No Orthopnea, No Paroxysmal Noc. Dyspnea, No Edema, No Lt Headedness, No Other Respiratory: No Cough, No Dry; Shortness of breath, SOB with excertion; No Wheezing, No Hemoptysis, No Pleuritic Pain, No Sputum, No Other Gastrointestinal: No Nausea, No Vomiting, No Abdominal Pain, No Diarrhea, No Constipation, No Melena, No Hematochezia, No Other Genitourinary: No Dysuria, No Frequency, No Incontinence, No Hematuria, No Retention, No Other Musculoskeletal: No other, No neck pain, No shoulder pain, No arm pain, No back pain, No hand pain, No leg pain, No foot pain Skin: No Rash, No Lesions, No Jaundice, No Bruising, No Other Objective Vitals Vital Signs Date Time Temp Pulse Resp B/P (MAP) Pulse Ox O2 Delivery O2 Flow Rate FiO2 05/16/24 10:52 85 20 90 05/16/24 10:00 106/63 (77) 05/16/24 07:20 Oxymizer 12 N/A 05/16/24 07:20 98.1 98.1 Intake/Output Intake and Output 05/16/24 07:00 Intake Total 50 ml Balance 50 ml Intake IV Total 50 ml Medications Current Medications Medications Dose Ordered Sig/Melvin Route Start Time Stop Time Status Last Admin Dose Admin Ceftriaxone Sodium 50 ml @ 100 mls/hr DAILY@09 IV 05/15/24 09:00 05/16/24 09:10 100 MLS/HR Albuterol 2.5 mg Q4HWA NEB 05/14/24 14:00 05/16/24 10:43 2.5 MG Ipratropium [place] 0.5 mg Q4HWA NEB 05/14/24 14:00 05/16/24 10:43 0.5 MG Methylprednisolone Sodium Succinate 40 mg DAILY IV 05/15/24 10:00 05/16/24 11:32 40 MG Azithromycin 500 mg DAILY PO 05/15/24 10:00 05/16/24 11:31 500 MG Acetaminophen/ Hydrocodone Bitart 1 tab Q4HP PRN PO 05/14/24 14:00 05/14/24 23:00 1 TAB Ondansetron HCl 4 mg Q4HP PRN IV 05/14/24 14:00 05/14/24 20:18 4 MG Docusate Sodium 100 mg BIDPRN PRN PO 05/14/24 14:00 Zinc Sulfate 220 mg DAILY PO 05/15/24 10:00 05/16/24 11:32 220 MG Ascorbic Acid 500 mg BID PO 05/14/24 22:00 05/16/24 11:31 500 MG Multivitamins 1 tab DAILY PO 05/15/24 10:00 05/16/24 11:32 1 TAB Acetaminophen 650 mg Q6HP PRN PO 05/14/24 14:00 05/14/24 23:00 650 MG Morphine Sulfate 2 mg Q4HPRN PRN IV 05/14/24 14:00 05/15/24 16:22 2 MG Pramipexole Dihydrochloride 0.75 mg BID PO 05/15/24 10:00 05/16/24 12:08 0.75 MG Lorazepam 0.5 mg Q8HP PRN PO 05/14/24 22:45 05/16/24 05:43 0.5 MG Clopidogrel Bisulfate 75 mg DAILY PO 05/17/24 10:00 Apixaban 5 mg BID PO 05/16/24 22:00 Flecainide Acetate 50 mg Q12HR PO 05/16/24 22:00 Metoprolol Succinate 25 mg DAILY PO 05/17/24 10:00 Hydralazine HCl 10 mg Q6HP PRN IV 05/16/24 11:00 Laboratory Results Laboratory Tests 05/15/24 05:21 Chemistry Test 05/16/24 11:20 Magnesium Level 1.9 mg/dL (1.6-2.6) Labs and/or images reviewed: Labs reviewed by me, Image(s) reviewed by me Assessment/Plan Assessment/Plan Acute hypoxic respiratory failure: Oxygen 15 L by Oxymizer Acute COPD exacerbation: Albuterol Atrovent Solu-Medrol consult for Dr. Tarango appreciated Acute CHF exacerbation: Lasix consult for Dr. Vázquez, troponin negative x3 Paroxysmal AFib on flecainide and Eliquis History of coronary artery disease with stents 2009 and 2012 on Plavix cardiology consult by Dr.Al Vega appreciated Hypertension Hypercholesterolemia Left lower lobe community-acquired pneumonia: Rocephin azithromycin Kate test pending Flu test pending History of left lithotripsy 20 years ago Acute hypokalemia potassium 3.0 Morbid obesity Time spent 65 minutes Patient is full code Advanced care planning time 20 minutes Not stable for transfer to [place] Plan discussed with: Patient My Orders Orders - LETICIA WILKINSON MD Procedure Category Date Status Time Echo 2d Mode Cardiac US 05/15/24 Resulted DOP 13:10 *Consult CONS 05/15/24 Transmitted / 13:11 * Cardiology Consult CONS 05/15/24 Transmitted 13:11 Date of Service: May 16, 2024 Billing Provider: LETICIA WILKINSON MD Common Visit Codes: 08980-[id number] CARE 30-74 MIN LETICIA WILKINSON MD May 16, 2024 12:15
--- NOTE | 2024-05-16 20:31 | DVHPN2 ---
Progress Note - Dictate Date Seen: May 16, 2024 Medical Necessity Reason Pt with a Central, PICC or Fol: No Subjective Patient seen and examined at bedside. Remains on supplemental oxygen Overnight events reviewed. vital signs Vital Sign Date Time Temp Pulse Resp B/P (MAP) Pulse Ox O2 Delivery O2 Flow Rate FiO2 05/16/24 20:00 96 05/16/24 18:51 12 93 05/16/24 18:43 Oxymizer 12 82 82 05/16/24 18:28 123/85 05/16/24 07:20 98.1 98.1 Total Intake and Output 05/15/24 05/15/24 05/16/24 15:00 23:00 07:00 Intake Total 50 ml Balance 50 ml medications Current Medications Medications Dose Ordered Sig/Melvin Route Start Time Stop Time Status Last Admin Dose Admin Ceftriaxone Sodium 50 ml @ 100 mls/hr DAILY@09 IV 05/15/24 09:00 05/16/24 09:10 100 MLS/HR Albuterol 2.5 mg Q4HWA NEB 05/14/24 14:00 05/16/24 18:46 2.5 MG Ipratropium [place] 0.5 mg Q4HWA NEB 05/14/24 14:00 05/16/24 18:46 0.5 MG Methylprednisolone Sodium Succinate 40 mg DAILY IV 05/15/24 10:00 05/16/24 11:32 40 MG Azithromycin 500 mg DAILY PO 05/15/24 10:00 05/16/24 11:31 500 MG Acetaminophen/ Hydrocodone Bitart 1 tab Q4HP PRN PO 05/14/24 14:00 05/14/24 23:00 1 TAB Ondansetron HCl 4 mg Q4HP PRN IV 05/14/24 14:00 05/14/24 20:18 4 MG Docusate Sodium 100 mg BIDPRN PRN PO 05/14/24 14:00 Zinc Sulfate 220 mg DAILY PO 05/15/24 10:00 05/16/24 11:32 220 MG Ascorbic Acid 500 mg BID PO 05/14/24 22:00 05/16/24 11:31 500 MG Multivitamins 1 tab DAILY PO 05/15/24 10:00 05/16/24 11:32 1 TAB Acetaminophen 650 mg Q6HP PRN PO 05/14/24 14:00 05/14/24 23:00 650 MG Morphine Sulfate 2 mg Q4HPRN PRN IV 05/14/24 14:00 05/16/24 17:58 2 MG Pramipexole Dihydrochloride 0.75 mg BID PO 05/15/24 10:00 05/16/24 12:08 0.75 MG Lorazepam 0.5 mg Q8HP PRN PO 05/14/24 22:45 05/16/24 05:43 0.5 MG Clopidogrel Bisulfate 75 mg DAILY PO 05/17/24 10:00 Apixaban 5 mg BID PO 05/16/24 22:00 Flecainide Acetate 50 mg Q12HR PO 05/16/24 22:00 Metoprolol Succinate 25 mg DAILY PO 05/17/24 10:00 Hydralazine HCl 10 mg Q6HP PRN IV 05/16/24 11:00 objective Gen.: Patient lying in bed in no apparent distress. On supplemental oxygen. Head: Normocephalic, atraumatic. Eyes: EOMI/PERRLA. Ears: Normal hearing. Normal anatomy. Neck/trachea: Trachea midline, supple. Nose: Normal external anatomy. Mouth: Moist mucous membranes. Chest: Decreased air entry bilaterally. No wheezing or rhonchi. Cardiovascular: Positive S1, positive S2. Regular rate and rhythm. Abdomen: Positive bowel sounds in all 4 quadrants. Soft, non-tender, non- distended. : Deferred. Rectal: Deferred. Skin: Warm, dry. Intact. Extremities: 2+ radial pulses bilaterally. No lower extremity edema. Neuro: Awake, alert, oriented x3. No gross motor or sensory deficits. Cranial nerves II through XII intact. Gait not assessed. laboratory and microbiology Laboratory Tests 05/15/24 05:21 Test 05/15/24 05:21 Range/Units Serum Glucose 114 H 74-106 mg/dL Assessment/Plan Impression: Acute hypoxic respiratory failure 2/2 AE COPD Acute exacerbation of COPD Hypokalemia Pneumonia, likely gram negative Hypernatremia Congestive heart failure Obstructive sleep apnea Hypertension Atelectasis Hx of nicotine dependence Events: Remains on supplemental oxygen, 12 LPM Oxymizer Taper O2 as tolerated BiPAP PRN. Increased work of breathing noted. Patient anxious Monitor respiratory status closely. Continue Eliquis Continue bronchodilators Continue IV steroids Continue antibiotics MVI Incentive spirometry Labs and imaging reviewed. Rest of plan as noted below. Plan: Increased O2 requirements On 12 LPM Oxymizer Titrate to keep O2 sats above 92%. Taper O2 as tolerated. BiPAP PRN - uses at night for HEIDY Continue bronchodilators. Continue antibiotics F/u cultures IV steroids Incentive spirometry CXR demonstrates retrocardiac opacities. Diurese as tolerated Maintain euvolemia Monitor renal function. Monitor electrolytes. Supplement as necessary. Monitor ins and outs. DVT prophylaxis. Prognosis: Poor given patient's multiple co-morbidities. Condition: Critical Rest of plan per hospitalist and other consultants. A total of 35 minutes of critical care time was spent reviewing the patient record, examining the patient, making a diagnostic and therapeutic plan, discussing this plan with the medical personnel, following up on diagnostic studies and following the patient for clinical stability excluding any and all procedures. At least 50% of this time was spent in direct, [id number] contact. Thank you, XIOMARA Wright, for allowing me to participate in this patient's care. Further recommendations will depend on the patient's clinical course. Please do not hesitate to contact me if you have any questions or concerns. This medical document was created using an electronic medical record system with [employer] computerized dictation system. Although these documentations are being carefully reviewed, there may still be some phonetic and typographical changes. The errors are purely typographical, due to imperfection on the software program, and do not reflect any compromise in the patient's medical care. Plan discussed with: Patient, Other (RN) AYANA BASSETT MD May 16, 2024 20:31
[2024-05-16 21:58] LABS: Urine Bacteria FEW /hpf (None Seen); Urine Blood 1+ /uL (Negative); Urine Budding Yeast OCCASIONAL /hpf (None Seen); Urine Clarity Clear (Clear); Urine Color Light-Yellow (Yellow); Urine Mucus FEW (None Seen); Urine Protein, UAD TRACE (Negative); Urine Specific Gravity 1.021 (1.001-1.035); Urine Urobilinogen Normal (Negative); Urine WBC 68 /hpf (0 - 3); Urine pH 5.5 (5.0-9.0)
[2024-05-16] MEDS: APIXABAN 5 MG TAB PO SCH (21:59)
[2024-05-16] MEDS: FLECAINIDE ACETATE 50 MG TAB PO SCH (22:33)
[2024-05-17] VITALS (13 sets, daily range): BP systolic 114–135; BP diastolic 79–85; PULSE 71–92; RESP 17–24; O2SAT 87–96
[2024-05-17] MEDS ORDERED: VENLAFAXINE HCL 37.5MG TABLET PO SCH ×2 (01:30→07:00)
[2024-05-17 05:52] LABS: Basophils # (auto) 0 10 ^3/uL (0-0.2); Basophils % (auto) 0.4 % (0.0-2.0); Eosinophils # (auto) 0 10 ^3/uL (0-0.8); Eosinophils % (auto) 0.1 % (0.0-7.0); Hematocrit 36.6 % (41.0-53.0); Hemoglobin 11.7 g/dL (13.5-17.5); Lymphocytes # (auto) 1.9 10 ^3/uL (0.4-5.4); Lymphocytes % (auto) 16.2 % (10.0-50.0); Mean Corpuscular Hemoglobin 28.7 pg (28.0-32.0); Mean Corpuscular Hgb Conc. 32.1 g/dL (32.0-36.0); Mean Corpuscular Volume 89.4 fL (80.0-100.0); Monocytes # (auto) 0.9 10 ^3/uL (0-1.3); Monocytes % (auto) 8.1 % (0.0-12.0); Neutrophils # (auto) 8.7 10 ^3/uL (1.6-8.6); Neutrophils % (auto) 75.2 % (37.0-80.0); Platelet Count (auto) 271 10^3/uL (140-450); Red Blood Cells 4.09 10^6/uL (4.5-5.90); Red Cell Distribution Width 15.9 % (11.8-14.3); White Blood Cell 11.5 10^3/uL (4.4-10.8)
[2024-05-17 06:02] LABS: Anion Gap 8 (5-15); Carbon Dioxide 27 mmol/L (20-31); Potassium 4.2 mmol/L (3.5-5.1); Sodium 144 mmol/L (136-145)
[2024-05-17 06:03] LABS: Calcium 9.1 mg/dL (8.7-10.4)
[2024-05-17 06:07] LABS: BUN/Creatinine Ratio 22.1 (10.0-20.0); Blood Urea Nitrogen 17 mg/dL (9-23); Glucose 98 mg/dL (74-106)
[2024-05-17 06:17] LABS: Chloride 109 mmol/L (98-107)
[2024-05-17] MEDS: VENLAFAXINE HCL 37.5MG TABLET PO SCH (06:56)
--- NOTE | 2024-05-17 08:44 | DVHPN2 ---
Reviewed: Care Plan, H&P, Labs, Medications, Previous Orders, Radiology Changes from previous H/P or p: No Changes Eyes: No Pain, No Vision change, No Conjunctivae inflammation, No Eyelid inflammation, No Other, No Redness ENT: No Ear pain, No Ear discharge, No Nose pain, No Nose discharge, No Nose congestion, No Mouth pain, No Mouth swelling, No Throat pain, No Throat swelling, No Other Cardiovascular: No Chest Pain, No Palpitations, No Orthopnea, No Paroxysmal Noc. Dyspnea, No Edema, No Lt Headedness, No Other Respiratory: No Cough, No Dry; Shortness of breath, SOB with excertion; No Wheezing, No Hemoptysis, No Pleuritic Pain, No Sputum, No Other Gastrointestinal: No Nausea, No Vomiting, No Abdominal Pain, No Diarrhea, No Constipation, No Melena, No Hematochezia, No Other Genitourinary: No Dysuria, No Frequency, No Incontinence, No Hematuria, No Retention, No Other Musculoskeletal: No other, No neck pain, No shoulder pain, No arm pain, No back pain, No hand pain, No leg pain, No foot pain Skin: No Rash, No Lesions, No Jaundice, No Bruising, No Other Objective Vitals Vital Signs Date Time Temp Pulse Resp B/P (MAP) Pulse Ox O2 Delivery O2 Flow Rate FiO2 05/17/24 08:00 79 05/17/24 07:42 20 96 05/17/24 07:36 Oxymizer 13 N/A 05/17/24 07:00 136/93 (107) 05/16/24 19:45 97.8 97.8 Intake/Output Intake and Output 05/17/24 07:00 Intake Total 50 ml Output Total 450 ml Balance -400 ml Intake IV Total 50 ml Output Urine Total 450 ml Medications Current Medications Medications Dose Ordered Sig/Melvin Route Start Time Stop Time Status Last Admin Dose Admin Ceftriaxone Sodium 50 ml @ 100 mls/hr DAILY@09 IV 05/15/24 09:00 05/16/24 09:10 100 MLS/HR Albuterol 2.5 mg Q4HWA [facility] 05/14/24 14:00 05/17/24 07:36 2.5 MG Ipratropium [place] 0.5 mg Q4HWA [facility] 05/14/24 14:00 05/17/24 07:36 0.5 MG Methylprednisolone Sodium Succinate 40 mg DAILY IV 05/15/24 10:00 05/16/24 11:32 40 MG Azithromycin 500 mg DAILY PO 05/15/24 10:00 05/16/24 11:31 500 MG Acetaminophen/ Hydrocodone Bitart 1 tab Q4HP PRN PO 05/14/24 14:00 05/14/24 23:00 1 TAB Ondansetron HCl 4 mg Q4HP PRN IV 05/14/24 14:00 05/14/24 20:18 4 MG Docusate Sodium 100 mg BIDPRN PRN PO 05/14/24 14:00 Zinc Sulfate 220 mg DAILY PO 05/15/24 10:00 05/16/24 11:32 220 MG Ascorbic Acid 500 mg BID PO 05/14/24 22:00 05/16/24 21:59 500 MG Multivitamins 1 tab DAILY PO 05/15/24 10:00 05/16/24 11:32 1 TAB Acetaminophen 650 mg Q6HP PRN PO 05/14/24 14:00 05/14/24 23:00 650 MG Morphine Sulfate 2 mg Q4HPRN PRN IV 05/14/24 14:00 05/16/24 17:58 2 MG Pramipexole Dihydrochloride 0.75 mg BID PO 05/15/24 10:00 05/16/24 22:33 0.75 MG Lorazepam 0.5 mg Q8HP PRN PO 05/14/24 22:45 05/17/24 01:44 0.5 MG Clopidogrel Bisulfate 75 mg DAILY PO 05/17/24 10:00 Apixaban 5 mg BID PO 05/16/24 22:00 05/16/24 21:59 5 MG Flecainide Acetate 50 mg Q12HR PO 05/16/24 22:00 05/16/24 22:33 50 MG Metoprolol Succinate 25 mg DAILY PO 05/17/24 10:00 Hydralazine HCl 10 mg Q6HP PRN IV 05/16/24 11:00 Venlafaxine HCl 150 mg DAILY PO 05/17/24 07:00 05/17/24 06:56 150 MG Laboratory Results Laboratory Tests 05/17/24 05:30 Chemistry Test 05/16/24 11:20 05/17/24 05:30 Magnesium Level 1.9 mg/dL (1.6-2.6) Calcium Level 9.1 mg/dL (8.7-10.4) Urinalysis Test 05/16/24 21:30 Urine Color Light-yellow (Yellow) Urine Clarity Clear (Clear) Urine pH 5.5 (5.0-9.0) Urine Specific [place] 1.021 (1.001-1.035) Urine Protein Trace (Negative) H Urine Ketones Negative (Negative) Urine Blood 1+ /uL (Negative) H Urine Nitrite Negative (Negative) Urine Bilirubin Negative (Negative) Urine Urobilinogen Normal mg/dL (Negative) Urine Leukocyte Esterase 2+ /uL (Negative) Urine RBC 67 /hpf (0 - 3) Urine WBC 68 /hpf (0 - 3) Urine Squamous Epithelial Cells Few /hpf (<5) Urine Bacteria Few /hpf (None Seen) H Urine Mucus Few (None Seen) Urine Yeast (Budding) Occasional /hpf (None Urine Glucose Normal mg/dL (Normal) Labs and/or images reviewed: Labs reviewed by me, Image(s) reviewed by me Assessment/Plan Assessment/Plan Acute hypoxic respiratory failure: Oxygen 12 L by Oxymizer Acute COPD exacerbation: Albuterol Atrovent Solu-Medrol consult for Dr. Tarango appreciated Acute CHF exacerbation: Lasix consult for Dr. Vázquez appreciated, troponin negative x3 Paroxysmal AFib on flecainide and Eliquis History of coronary artery disease with stents 2009 and 2012 on Plavix cardiology consult by Dr.Al Vega appreciated Hypertension Hypercholesterolemia Left lower lobe community-acquired pneumonia: Rocephin azithromycin Kate test pending Flu test pending History of left lithotripsy 20 years ago Acute hypokalemia potassium 3.0 Morbid obesity Time spent 65 minutes Patient is full code Advanced care planning time 20 minutes Not stable for transfer to [facility] discussed with: Patient Date of Service: May 17, 2024 Billing Provider: LETICIA WILKINSON MD Common Visit Codes: [id number] CARE 30-74 MIN LETICIA WILKINSON MD May 17, 2024 08:44
[2024-05-17] MEDS: METOPROLOL SUCCINATE XL 50 MG TAB PO SCH (10:49)
[2024-05-17] MEDS: CLOPIDOGREL BISULFATE 75 MG TAB PO SCH (10:50)
[2024-05-17 10:57] LABS: Rapid Influenza A Negative (Negative); Rapid Influenza B Negative (Negative)
[2024-05-17 10:59] LABS: COVID19 ANTIGEN SOFIA FIA NEGATIVE (NEGATIVE)
--- NOTE | 2024-05-17 23:19 | DVHPN2 ---
Progress Note - Dictate Date Seen: May 17, 2024 Medical Necessity Reason Pt with a Central, PICC or Fol: No Subjective Patient seen and examined at bedside. Remains on supplemental oxygen Overnight events reviewed. vital signs Vital Sign Date Time Temp Pulse Resp B/P (MAP) Pulse Ox O2 Delivery O2 Flow Rate FiO2 05/17/24 23:04 71 16 132/75 05/17/24 22:30 93 05/17/24 20:30 98.9 98.9 05/17/24 20:16 Oxymizer 12 N/A Total Intake and Output 05/16/24 05/16/24 05/17/24 15:00 23:00 07:00 Intake Total 50 ml Output Total 450 ml Balance 50 ml -450 ml medications Current Medications Medications Dose Ordered Sig/Melvin Route Start Time Stop Time Status Last Admin Dose Admin Ceftriaxone Sodium 50 ml @ 100 mls/hr DAILY@09 IV 05/15/24 09:00 05/17/24 09:17 100 MLS/HR Albuterol 2.5 mg Q4HWA NEB 05/14/24 14:00 05/17/24 22:27 2.5 MG Ipratropium [place] 0.5 mg Q4HWA NEB 05/14/24 14:00 05/17/24 22:27 0.5 MG Methylprednisolone Sodium Succinate 40 mg DAILY IV 05/15/24 10:00 05/17/24 10:44 40 MG Azithromycin 500 mg DAILY PO 05/15/24 10:00 05/17/24 10:50 500 MG Acetaminophen/ Hydrocodone Bitart 1 tab Q4HP PRN PO 05/14/24 14:00 05/14/24 23:00 1 TAB Ondansetron HCl 4 mg Q4HP PRN IV 05/14/24 14:00 05/14/24 20:18 4 MG Docusate Sodium 100 mg BIDPRN PRN PO 05/14/24 14:00 Zinc Sulfate 220 mg DAILY PO 05/15/24 10:00 05/17/24 10:49 220 MG Ascorbic Acid 500 mg BID PO 05/14/24 22:00 05/17/24 22:19 500 MG Multivitamins 1 tab DAILY PO 05/15/24 10:00 05/17/24 10:50 1 TAB Acetaminophen 650 mg Q6HP PRN PO 05/14/24 14:00 05/17/24 18:52 650 MG Morphine Sulfate 2 mg Q4HPRN PRN IV 05/14/24 14:00 05/17/24 22:33 2 MG Pramipexole Dihydrochloride 0.75 mg BID PO 05/15/24 10:00 05/17/24 22:19 0.75 MG Lorazepam 0.5 mg Q8HP PRN PO 05/14/24 22:45 05/17/24 22:32 0.5 MG Clopidogrel Bisulfate 75 mg DAILY PO 05/17/24 10:00 05/17/24 10:50 75 MG Apixaban 5 mg BID PO 05/16/24 22:00 05/17/24 22:19 5 MG Flecainide Acetate 50 mg Q12HR PO 05/16/24 22:00 05/17/24 22:21 50 MG Metoprolol Succinate 25 mg DAILY PO 05/17/24 10:00 05/17/24 10:49 25 MG Hydralazine HCl 10 mg Q6HP PRN IV 05/16/24 11:00 Venlafaxine HCl 150 mg DAILY PO 05/17/24 07:00 05/17/24 06:56 150 MG objective Gen.: Patient lying in bed in no apparent distress. On supplemental oxygen. Head: Normocephalic, atraumatic. Eyes: EOMI/PERRLA. Ears: Normal hearing. Normal anatomy. Neck/trachea: Trachea midline, supple. Nose: Normal external anatomy. Mouth: Moist mucous membranes. Chest: Decreased air entry bilaterally. No wheezing or rhonchi. Cardiovascular: Positive S1, positive S2. Regular rate and rhythm. Abdomen: Positive bowel sounds in all 4 quadrants. Soft, non-tender, non- distended. : Deferred. Rectal: Deferred. Skin: Warm, dry. Intact. Extremities: 2+ radial pulses bilaterally. No lower extremity edema. Neuro: Awake, alert, oriented x3. No gross motor or sensory deficits. Cranial nerves II through XII intact. Gait not assessed. laboratory and microbiology Laboratory Tests 05/17/24 05:30 Test 05/17/24 05:30 Range/Units Serum Glucose 98 74-106 mg/dL Assessment/Plan Impression: Acute hypoxic respiratory failure 2/2 AE COPD Acute exacerbation of COPD Hypokalemia Pneumonia, likely gram negative Hypernatremia Congestive heart failure Obstructive sleep apnea Hypertension Atelectasis Hx of nicotine dependence Events: Remains on supplemental oxygen, 13 LPM Oxymizer Taper O2 as tolerated BiPAP PRN. Improvement in symptoms noted. Patient is less anxious Monitor respiratory status closely d/t high O2 requirements. Continue Eliquis Continue bronchodilators Continue IV steroids Continue antibiotics MVI Incentive spirometry Maintain euvolemia Monitor renal function. Labs and imaging reviewed. Rest of plan as noted below. Plan: Increased O2 requirements On 13 LPM Oxymizer Titrate to keep O2 sats above 92%. Taper O2 as tolerated. BiPAP PRN - uses at night for HEIDY Continue bronchodilators. Continue antibiotics F/u cultures IV steroids Incentive spirometry CXR demonstrates retrocardiac opacities. Diurese as tolerated Maintain euvolemia Monitor renal function. Monitor electrolytes. Supplement as necessary. Monitor ins and outs. DVT prophylaxis. Prognosis: Poor given patient's multiple co-morbidities. Condition: Critical Rest of plan per hospitalist and other consultants. A total of 35 minutes of critical care time was spent reviewing the patient record, examining the patient, making a diagnostic and therapeutic plan, discussing this plan with the medical personnel, following up on diagnostic studies and following the patient for clinical stability excluding any and all procedures. At least 50% of this time was spent in direct, [id number] contact. Thank you, XIOMARA Wright, for allowing me to participate in this patient's care. Further recommendations will depend on the patient's clinical course. Please do not hesitate to contact me if you have any questions or concerns. This medical document was created using an electronic medical record system with [employer] dictation system. Although these documentations are being carefully reviewed, there may still be some phonetic and typographical changes. The errors are purely typographical, due to imperfection on the software program, and do not reflect any compromise in the patient's medical care. Plan discussed with: Other (RAMANDEEP Delgado) Critical Care Time(min): 35 AYANA BASSETT MD May 17, 2024 23:19
[2024-05-18] VITALS (13 sets, daily range): BP systolic 117; BP diastolic 76; PULSE 70–84; RESP 12–20; O2SAT 90–99
--- NOTE | 2024-05-18 08:02 | DVHPN2 ---
Reviewed: Care Plan, H&P, Labs, Medications, Previous Orders, Radiology Changes from previous H/P or p: No Changes Eyes: No Pain, No Vision change, No Conjunctivae inflammation, No Eyelid inflammation, No Other, No Redness ENT: No Ear pain, No Ear discharge, No Nose pain, No Nose discharge, No Nose congestion, No Mouth pain, No Mouth swelling, No Throat pain, No Throat swelling, No Other Cardiovascular: No Chest Pain, No Palpitations, No Orthopnea, No Paroxysmal Noc. Dyspnea, No Edema, No Lt Headedness, No Other Respiratory: No Cough, No Dry; Shortness of breath, SOB with excertion; No Wheezing, No Hemoptysis, No Pleuritic Pain, No Sputum, No Other Gastrointestinal: No Nausea, No Vomiting, No Abdominal Pain, No Diarrhea, No Constipation, No Melena, No Hematochezia, No Other Genitourinary: No Dysuria, No Frequency, No Incontinence, No Hematuria, No Retention, No Other Musculoskeletal: No other, No neck pain, No shoulder pain, No arm pain, No back pain, No hand pain, No leg pain, No foot pain Skin: No Rash, No Lesions, No Jaundice, No Bruising, No Other Objective Vitals Vital Signs Date Time Temp Pulse Resp B/P (MAP) Pulse Ox O2 Delivery O2 Flow Rate FiO2 05/18/24 07:28 72 15 96 05/18/24 07:19 Oxymizer 12.0 05/18/24 07:19 N/A 05/18/24 07:00 132/79 (96) 05/17/24 20:30 98.9 98.9 Intake/Output Intake and Output 05/18/24 07:00 Intake Total 50 ml Output Total 1000 ml Balance -950 ml Intake IV Total 50 ml Output Urine Total 1000 ml Medications Current Medications Medications Dose Ordered Sig/Melvin Route Start Time Stop Time Status Last Admin Dose Admin Ceftriaxone Sodium 50 ml @ 100 mls/hr DAILY@09 IV 05/15/24 09:00 05/17/24 09:17 100 MLS/HR Albuterol 2.5 mg Q4HWA [facility] 05/14/24 14:00 05/18/24 07:19 2.5 MG Ipratropium [place] 0.5 mg Q4HWA [facility] 05/14/24 14:00 05/18/24 07:19 0.5 MG Methylprednisolone Sodium Succinate 40 mg DAILY IV 05/15/24 10:00 05/17/24 10:44 40 MG Azithromycin 500 mg DAILY PO 05/15/24 10:00 05/17/24 10:50 500 MG Acetaminophen/ Hydrocodone Bitart 1 tab Q4HP PRN PO 05/14/24 14:00 05/18/24 04:34 1 TAB Ondansetron HCl 4 mg Q4HP PRN IV 05/14/24 14:00 05/14/24 20:18 4 MG Docusate Sodium 100 mg BIDPRN PRN PO 05/14/24 14:00 Zinc Sulfate 220 mg DAILY PO 05/15/24 10:00 05/17/24 10:49 220 MG Ascorbic Acid 500 mg BID PO 05/14/24 22:00 05/17/24 22:19 500 MG Multivitamins 1 tab DAILY PO 05/15/24 10:00 05/17/24 10:50 1 TAB Acetaminophen 650 mg Q6HP PRN PO 05/14/24 14:00 05/17/24 18:52 650 MG Morphine Sulfate 2 mg Q4HPRN PRN IV 05/14/24 14:00 05/17/24 22:33 2 MG Pramipexole Dihydrochloride 0.75 mg BID PO 05/15/24 10:00 05/17/24 22:19 0.75 MG Lorazepam 0.5 mg Q8HP PRN PO 05/14/24 22:45 05/17/24 22:32 0.5 MG Clopidogrel Bisulfate 75 mg DAILY PO 05/17/24 10:00 05/17/24 10:50 75 MG Apixaban 5 mg BID PO 05/16/24 22:00 05/17/24 22:19 5 MG Flecainide Acetate 50 mg Q12HR PO 05/16/24 22:00 05/17/24 22:21 50 MG Metoprolol Succinate 25 mg DAILY PO 05/17/24 10:00 05/17/24 10:49 25 MG Hydralazine HCl 10 mg Q6HP PRN IV 05/16/24 11:00 Venlafaxine HCl 150 mg DAILY PO 05/17/24 07:00 05/17/24 06:56 150 MG Laboratory Results Laboratory Tests 05/17/24 05:30 Urinalysis Test 05/16/24 21:30 Urine Color Light-yellow (Yellow) Urine Clarity Clear (Clear) Urine pH 5.5 (5.0-9.0) Urine Specific [place] 1.021 (1.001-1.035) Urine Protein Trace (Negative) H Urine Ketones Negative (Negative) Urine Blood 1+ /uL (Negative) H Urine Nitrite Negative (Negative) Urine Bilirubin Negative (Negative) Urine Urobilinogen Normal mg/dL (Negative) Urine Leukocyte Esterase 2+ /uL (Negative) Urine RBC 67 /hpf (0 - 3) Urine WBC 68 /hpf (0 - 3) Urine Squamous Epithelial Cells Few /hpf (<5) Urine Bacteria Few /hpf (None Seen) H Urine Mucus Few (None Seen) Urine Yeast (Budding) Occasional /hpf (None Urine Glucose Normal mg/dL (Normal) Labs and/or images reviewed: Labs reviewed by me, Image(s) reviewed by me Assessment/Plan Assessment/Plan Acute hypoxic respiratory failure: Oxygen 12 L by Oxymizer Acute COPD exacerbation: Albuterol Atrovent Solu-Medrol consult for Dr. Tarango appreciated Acute CHF exacerbation: Lasix consult for Dr. Vázquez appreciated, troponin negative x3 Paroxysmal AFib on flecainide and Eliquis History of coronary artery disease with stents 2009 and 2012 on Plavix cardiology consult by Dr.Al Vega appreciated Hypertension Hypercholesterolemia Left lower lobe community-acquired pneumonia: Rocephin azithromycin Kate test negative Flu test negative History of left lithotripsy 20 years ago Acute hypokalemia potassium 3.0, replace potassium Morbid obesity Time spent 65 minutes Patient is full code Advanced care planning time 20 minutes Stable for transfer to [place] Orders placed for transfer to [place] Plan discussed with: Patient Date of Service: May 18, 2024 Billing Provider: LETICIA WILKINSON MD Common Visit Codes: [id number] CARE 30-74 MIN LETICIA WILKINSON MD May 18, 2024 08:02
--- NOTE | 2024-05-18 08:06 | DVHTS ---
Transfer Summary Transfer Summary Date of Admission May 14, 2024 at 13:49 Date of Transfer: May 18, 2024 Transfer Diagnosis Acute hypoxic respiratory failure secondary to community-acquired pneumonia Brief Hx & Hospital Course: 68-year-old male with a history of hypertension hypercholesterolemia coronary artery disease with stents in 2009 and 2012 on Plavix history of left lithotripsy 20 years ago COPD congestive heart failure paroxysmal atrial fibrillation came in complaining of shortness of breaths patient was placed on oxygen by 12 L of by Oxymizer. Chest x-ray showed possible community-acquired pneumonia in the left lower lobe treated with Rocephin and azithromycin seen by admissions representative Dr. Tarango. Also placed on med nebs and steroids. Patient had paroxysmal AFib placed on flecainide and Eliquis seen by mustanger Dr Bria Love test negative flu test negative. Troponin negative CHF exacerba tion treated with Lasix Patient is stable for transfer to [place] and is being transferred to [place] for further care. Patient is not intubated. Patient may be transferred to tele bed Transfer to: To [place] for further care Date of Service: May 18, 2024 Billing Provider: LETICIA WILKINSON MD Common Visit Codes: [id number] DISCH DAY >30min LETICIA WILKINSON MD May 18, 2024 08:06
--- NOTE | 2024-05-18 22:45 | DVHPN2 ---
Progress Note - Dictate Date Seen: May 18, 2024 Medical Necessity Reason Pt with a Central, PICC or Fol: No Subjective Patient seen and examined at bedside. Remains on supplemental oxygen Overnight events reviewed. vital signs Vital Sign Date Time Temp Pulse Resp B/P (MAP) Pulse Ox O2 Delivery O2 Flow Rate FiO2 05/18/24 22:03 74 14 116/80 05/18/24 20:15 95 05/18/24 20:07 Oxymizer 15.0 05/18/24 20:07 N/A 05/18/24 19:33 97.6 Total Intake and Output 05/17/24 05/17/24 05/18/24 14:59 22:59 06:59 Intake Total 50 ml Output Total 1000 ml Balance 50 ml -1000 ml medications Current Medications Medications Dose Ordered Sig/Melvin Route Start Time Stop Time Status Last Admin Dose Admin Ceftriaxone Sodium 50 ml @ 100 mls/hr DAILY@09 IV 05/15/24 09:00 05/18/24 10:38 100 MLS/HR Albuterol 2.5 mg Q4HWA NEB 05/14/24 14:00 05/18/24 20:07 2.5 MG Ipratropium [place] 0.5 mg Q4HWA NEB 05/14/24 14:00 05/18/24 20:07 0.5 MG Methylprednisolone Sodium Succinate 40 mg DAILY IV 05/15/24 10:00 05/18/24 10:39 40 MG Azithromycin 500 mg DAILY PO 05/15/24 10:00 05/18/24 10:41 500 MG Acetaminophen/ Hydrocodone Bitart 1 tab Q4HP PRN PO 05/14/24 14:00 05/18/24 04:34 1 TAB Ondansetron HCl 4 mg Q4HP PRN IV 05/14/24 14:00 05/18/24 21:33 4 MG Docusate Sodium 100 mg BIDPRN PRN PO 05/14/24 14:00 Zinc Sulfate 220 mg DAILY PO 05/15/24 10:00 05/18/24 10:39 220 MG Ascorbic Acid 500 mg BID PO 05/14/24 22:00 05/18/24 22:03 500 MG Multivitamins 1 tab DAILY PO 05/15/24 10:00 05/18/24 10:40 1 TAB Acetaminophen 650 mg Q6HP PRN PO 05/14/24 14:00 05/18/24 18:33 650 MG Morphine Sulfate 2 mg Q4HPRN PRN IV 05/14/24 14:00 05/18/24 21:33 2 MG Pramipexole Dihydrochloride 0.75 mg BID PO 05/15/24 10:00 05/18/24 22:09 0.75 MG Lorazepam 0.5 mg Q8HP PRN PO 05/14/24 22:45 05/17/24 22:32 0.5 MG Clopidogrel Bisulfate 75 mg DAILY PO 05/17/24 10:00 05/18/24 10:40 75 MG Apixaban 5 mg BID PO 05/16/24 22:00 05/18/24 22:03 5 MG Flecainide Acetate 50 mg Q12HR PO 05/16/24 22:00 05/18/24 22:09 50 MG Metoprolol Succinate 25 mg DAILY PO 05/17/24 10:00 05/18/24 10:40 25 MG Hydralazine HCl 10 mg Q6HP PRN IV 05/16/24 11:00 Venlafaxine HCl 150 mg DAILY PO 05/17/24 07:00 05/18/24 12:14 150 MG objective Gen.: Patient lying in bed in no apparent distress. On supplemental oxygen. Head: Normocephalic, atraumatic. Eyes: EOMI/PERRLA. Ears: Normal hearing. Normal anatomy. Neck/trachea: Trachea midline, supple. Nose: Normal external anatomy. Mouth: Moist mucous membranes. Chest: Decreased air entry bilaterally. No wheezing or rhonchi. Cardiovascular: Positive S1, positive S2. Regular rate and rhythm. Abdomen: Positive bowel sounds in all 4 quadrants. Soft, non-tender, non- distended. : Deferred. Rectal: Deferred. Skin: Warm, dry. Intact. Extremities: 2+ radial pulses bilaterally. No lower extremity edema. Neuro: Awake, alert, oriented x3. No gross motor or sensory deficits. Cranial nerves II through XII intact. Gait not assessed. laboratory and microbiology Laboratory Tests 05/17/24 05:30 Test 05/17/24 05:30 Range/Units Serum Glucose 98 74-106 mg/dL Assessment/Plan Impression: Acute hypoxic respiratory failure 2/2 AE COPD Acute exacerbation of COPD Hypokalemia Pneumonia, likely gram negative Hypernatremia Congestive heart failure Obstructive sleep apnea Hypertension Atelectasis Hx of nicotine dependence Events: Remains on supplemental oxygen, 10 LPM Oxymizer Taper O2 as tolerated O2 requirements improving. BiPAP PRN. Monitor respiratory status closely d/t high O2 requirements. Continue Eliquis Continue bronchodilators q.4 hours Continue IV steroids Continue antibiotics - Rocephin and azithromycin MVI Incentive spirometry Maintain euvolemia Monitor renal function. Patient is stable from the pulmonary standpoint for transfer to [place]. Labs and imaging reviewed. Rest of plan as noted below. Plan: Increased O2 requirements On 10 LPM Oxymizer Titrate to keep O2 sats above 92%. Taper O2 as tolerated. BiPAP PRN - uses at night for HEIDY Continue bronchodilators. Continue antibiotics F/u cultures IV steroids Incentive spirometry CXR demonstrates retrocardiac opacities. Diurese as tolerated Maintain euvolemia Monitor renal function. Monitor electrolytes. Supplement as necessary. Monitor ins and outs. DVT prophylaxis. Prognosis: Poor given patient's multiple co-morbidities. Condition: Critical Rest of plan per hospitalist and other consultants. A total of 35 minutes of critical care time was spent reviewing the patient record, examining the patient, making a diagnostic and therapeutic plan, discussing this plan with the medical personnel, following up on diagnostic studies and following the patient for clinical stability excluding any and all procedures. At least 50% of this time was spent in direct, [id number] contact. Thank you, XIOMARA Wright, for allowing me to participate in this patient's care. Further recommendations will depend on the patient's clinical course. Please do not hesitate to contact me if you have any questions or concerns. This medical document was created using an electronic medical record system with [employer] dictation system. Although these documentations are being carefully reviewed, there may still be some phonetic and typographical changes. The errors are purely typographical, due to imperfection on the software program, and do not reflect any compromise in the patient's medical care. Plan discussed with: Other (RAMANDEEP Oliveira) Critical Care Time(min): 35 AYANA BASSETT MD May 18, 2024 22:45
[2024-05-19] VITALS (14 sets, daily range): BP systolic 102; BP diastolic 54; PULSE 59–85; RESP 13–24; O2SAT 90–100
[2024-05-19] MEDS: FAMOTIDINE 20 MG TAB PO ONE (00:30)
--- NOTE | 2024-05-19 07:50 | DVHPN2 ---
Reviewed: Care Plan, H&P, Labs, Medications, Previous Orders, Radiology Changes from previous H/P or p: No Changes Eyes: No Pain, No Vision change, No Conjunctivae inflammation, No Eyelid inflammation, No Other, No Redness ENT: No Ear pain, No Ear discharge, No Nose pain, No Nose discharge, No Nose congestion, No Mouth pain, No Mouth swelling, No Throat pain, No Throat swelling, No Other Cardiovascular: No Chest Pain, No Palpitations, No Orthopnea, No Paroxysmal Noc. Dyspnea, No Edema, No Lt Headedness, No Other Respiratory: No Cough, No Dry; Shortness of breath, SOB with excertion; No Wheezing, No Hemoptysis, No Pleuritic Pain, No Sputum, No Other Gastrointestinal: No Nausea, No Vomiting, No Abdominal Pain, No Diarrhea, No Constipation, No Melena, No Hematochezia, No Other Genitourinary: No Dysuria, No Frequency, No Incontinence, No Hematuria, No Retention, No Other Musculoskeletal: No other, No neck pain, No shoulder pain, No arm pain, No back pain, No hand pain, No leg pain, No foot pain Skin: No Rash, No Lesions, No Jaundice, No Bruising, No Other Objective Vitals Vital Signs Date Time Temp Pulse Resp B/P (MAP) Pulse Ox O2 Delivery O2 Flow Rate FiO2 05/19/24 07:00 60 18 129/82 (98) 99 05/19/24 06:49 Oxymizer 8 N/A 05/19/24 00:00 97.6 97.6 Intake/Output Intake and Output 05/19/24 07:00 Intake Total 50 ml Output Total 600 ml Balance -550 ml Intake IV Total 50 ml Output Urine Total 600 ml Medications Current Medications Medications Dose Ordered Sig/Melvin Route Start Time Stop Time Status Last Admin Dose Admin Ceftriaxone Sodium 50 ml @ 100 mls/hr DAILY@09 IV 05/15/24 09:00 05/18/24 10:38 100 MLS/HR Albuterol 2.5 mg Q4HWA NEB 05/14/24 14:00 05/19/24 06:50 2.5 MG Ipratropium [place] 0.5 mg Q4HWA NEB 05/14/24 14:00 05/19/24 06:49 0.5 MG Methylprednisolone Sodium Succinate 40 mg DAILY IV 05/15/24 10:00 05/18/24 10:39 40 MG Azithromycin 500 mg DAILY PO 05/15/24 10:00 05/18/24 10:41 500 MG Acetaminophen/ Hydrocodone Bitart 1 tab Q4HP PRN PO 05/14/24 14:00 05/18/24 04:34 1 TAB Ondansetron HCl 4 mg Q4HP PRN IV 05/14/24 14:00 05/18/24 21:33 4 MG Docusate Sodium 100 mg BIDPRN PRN PO 05/14/24 14:00 Zinc Sulfate 220 mg DAILY PO 05/15/24 10:00 05/18/24 10:39 220 MG Ascorbic Acid 500 mg BID PO 05/14/24 22:00 05/18/24 22:03 500 MG Multivitamins 1 tab DAILY PO 05/15/24 10:00 05/18/24 10:40 1 TAB Acetaminophen 650 mg Q6HP PRN PO 05/14/24 14:00 05/18/24 18:33 650 MG Morphine Sulfate 2 mg Q4HPRN PRN IV 05/14/24 14:00 05/19/24 04:16 2 MG Pramipexole Dihydrochloride 0.75 mg BID PO 05/15/24 10:00 05/18/24 22:09 0.75 MG Lorazepam 0.5 mg Q8HP PRN PO 05/14/24 22:45 05/17/24 22:32 0.5 MG Clopidogrel Bisulfate 75 mg DAILY PO 05/17/24 10:00 05/18/24 10:40 75 MG Apixaban 5 mg BID PO 05/16/24 22:00 05/18/24 22:03 5 MG Flecainide Acetate 50 mg Q12HR PO 05/16/24 22:00 05/18/24 22:09 50 MG Metoprolol Succinate 25 mg DAILY PO 05/17/24 10:00 05/18/24 10:40 25 MG Hydralazine HCl 10 mg Q6HP PRN IV 05/16/24 11:00 Venlafaxine HCl 150 mg DAILY PO 05/17/24 07:00 05/18/24 12:14 150 MG Laboratory Results Laboratory Tests 05/17/24 05:30 Urinalysis Test 05/16/24 21:30 Urine Color Light-yellow (Yellow) Urine Clarity Clear (Clear) Urine pH 5.5 (5.0-9.0) Urine Specific [place] 1.021 (1.001-1.035) Urine Protein Trace (Negative) H Urine Ketones Negative (Negative) Urine Blood 1+ /uL (Negative) H Urine Nitrite Negative (Negative) Urine Bilirubin Negative (Negative) Urine Urobilinogen Normal mg/dL (Negative) Urine Leukocyte Esterase 2+ /uL (Negative) Urine RBC 67 /hpf (0 - 3) Urine WBC 68 /hpf (0 - 3) Urine Squamous Epithelial Cells Few /hpf (<5) Urine Bacteria Few /hpf (None Seen) H Urine Mucus Few (None Seen) Urine Yeast (Budding) Occasional /hpf (None Urine Glucose Normal mg/dL (Normal) Labs and/or images reviewed: Labs reviewed by me, Image(s) reviewed by me Assessment/Plan Assessment/Plan Acute hypoxic respiratory failure: Oxygen 8L by Oxymizer Acute COPD exacerbation: Albuterol Atrovent Solu-Medrol consult for Dr. Tarango appreciated Acute CHF exacerbation: Lasix consult for Dr. Vázquez appreciated, troponin negative x3 Paroxysmal AFib on flecainide and Eliquis History of coronary artery disease with stents 2009 and 2012 on Plavix cardiology consult by Dr.Al Vega appreciated Hypertension Hypercholesterolemia Left lower lobe community-acquired pneumonia: Rocephin azithromycin Kate test negative Flu test negative History of left lithotripsy 20 years ago Acute hypokalemia potassium 3.0, replace potassium Morbid obesity Time spent 65 minutes Patient is full code Advanced care planning time 20 minutes Stable for transfer to [place] Orders placed for transfer to [place] Examined today: No new complaint 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
[2024-05-19] MEDS: FAMOTIDINE 20 MG TAB PO SCH (22:57)
[2024-05-19] MEDS: APIXABAN 5 MG TAB ONE (22:58)
[2024-05-19] MEDS: FAMOTIDINE 20 MG TAB ONE (22:58)
[2024-05-19] MEDS: ASCORBIC ACID 500 MG TAB ONE (22:59)
[2024-05-19] MEDS: PRAMIPEXOLE DIHYDROCHLORIDE MO 0.25 MG TAB ONE (22:59)
--- NOTE | 2024-05-19 23:00 | DVHPN2 ---
Progress Note - Dictate Date Seen: May 19, 2024 Medical Necessity Reason Pt with a Central, PICC or Fol: No Subjective Patient seen and examined at bedside. Remains on supplemental oxygen Overnight events reviewed. vital signs Vital Sign Date Time Temp Pulse Resp B/P (MAP) Pulse Ox O2 Delivery O2 Flow Rate FiO2 05/19/24 20:00 99.0 83 20 117/76 (90) 89 99.0 05/19/24 18:35 Oxymizer 8.0 05/19/24 18:35 N/A Total Intake and Output 05/18/24 05/18/24 05/19/24 15:00 23:00 07:00 Intake Total 50 ml Output Total 600 ml Balance 50 ml -600 ml medications Current Medications Medications Dose Ordered Sig/Melvin Route Start Time Stop Time Status Last Admin Dose Admin Ceftriaxone Sodium 50 ml @ 100 mls/hr DAILY@09 IV 05/15/24 09:00 05/19/24 09:00 100 MLS/HR Albuterol 2.5 mg Q4HWA NEB 05/14/24 14:00 05/19/24 22:09 2.5 MG Ipratropium [place] 0.5 mg Q4HWA NEB 05/14/24 14:00 05/19/24 22:09 0.5 MG Methylprednisolone Sodium Succinate 40 mg DAILY IV 05/15/24 10:00 05/19/24 10:04 40 MG Azithromycin 500 mg DAILY PO 05/15/24 10:00 05/19/24 10:04 500 MG Acetaminophen/ Hydrocodone Bitart 1 tab Q4HP PRN PO 05/14/24 14:00 05/18/24 04:34 1 TAB Ondansetron HCl 4 mg Q4HP PRN IV 05/14/24 14:00 05/18/24 21:33 4 MG Docusate Sodium 100 mg BIDPRN PRN PO 05/14/24 14:00 Zinc Sulfate 220 mg DAILY PO 05/15/24 10:00 05/19/24 10:04 220 MG Ascorbic Acid 500 mg BID PO 05/14/24 22:00 05/19/24 22:57 500 MG Multivitamins 1 tab DAILY PO 05/15/24 10:00 05/19/24 10:00 1 TAB Acetaminophen 650 mg Q6HP PRN PO 05/14/24 14:00 05/19/24 08:02 650 MG Morphine Sulfate 2 mg Q4HPRN PRN IV 05/14/24 14:00 05/19/24 04:16 2 MG Pramipexole Dihydrochloride 0.75 mg BID PO 05/15/24 10:00 05/19/24 22:57 0.75 MG Lorazepam 0.5 mg Q8HP PRN PO 05/14/24 22:45 05/17/24 22:32 0.5 MG Clopidogrel Bisulfate 75 mg DAILY PO 05/17/24 10:00 05/18/24 10:40 75 MG Apixaban 5 mg BID PO 05/16/24 22:00 05/19/24 22:57 5 MG Flecainide Acetate 50 mg Q12HR PO 05/16/24 22:00 05/19/24 22:57 50 MG Metoprolol Succinate 25 mg DAILY PO 05/17/24 10:00 05/19/24 10:00 25 MG Hydralazine HCl 10 mg Q6HP PRN IV 05/16/24 11:00 Venlafaxine HCl 150 mg DAILY PO 05/17/24 07:00 05/19/24 12:17 150 MG Famotidine 20 mg Q12HR PO 05/19/24 22:00 05/19/24 22:57 20 MG objective Gen.: Patient lying in bed in no apparent distress. On supplemental oxygen. Head: Normocephalic, atraumatic. Eyes: EOMI/PERRLA. Ears: Normal hearing. Normal anatomy. Neck/trachea: Trachea midline, supple. Nose: Normal external anatomy. Mouth: Moist mucous membranes. Chest: Decreased air entry bilaterally. No wheezing or rhonchi. Cardiovascular: Positive S1, positive S2. Regular rate and rhythm. Abdomen: Positive bowel sounds in all 4 quadrants. Soft, non-tender, non- distended. : Deferred. Rectal: Deferred. Skin: Warm, dry. Intact. Extremities: 2+ radial pulses bilaterally. No lower extremity edema. Neuro: Awake, alert, oriented x3. No gross motor or sensory deficits. Cranial nerves II through XII intact. Gait not assessed. laboratory and microbiology Laboratory Tests 05/17/24 05:30 Test 05/17/24 05:30 Range/Units Serum Glucose 98 74-106 mg/dL Assessment/Plan Impression: Acute hypoxic respiratory failure 2/2 AE COPD Acute exacerbation of COPD Hypokalemia Pneumonia, likely gram negative Hypernatremia Congestive heart failure Obstructive sleep apnea Hypertension Atelectasis Hx of nicotine dependence Obesity, BMI 30.3 Events: Remains on supplemental oxygen, 6 LPM Oxymizer Taper O2 as tolerated BiPAP PRN. Monitor respiratory status closely d/t high O2 requirements. Continue bronchodilators q.4 hours Continue IV steroids Continue antibiotics MVI Incentive spirometry Maintain euvolemia Monitor renal function. Patient is stable from the pulmonary standpoint for transfer to [place]. Labs and imaging reviewed. Rest of plan as noted below. Plan: Supplemental oxygen On 6 LPM Oxymizer Titrate to keep O2 sats above 92%. Taper O2 as tolerated. BiPAP at night for HEIDY Continue bronchodilators. Continue antibiotics F/u cultures IV steroids Incentive spirometry CXR demonstrates retrocardiac opacities. Diurese as tolerated Maintain euvolemia Monitor renal function. Monitor electrolytes. Supplement as necessary. Monitor ins and outs. DVT prophylaxis. Prognosis: Poor given patient's multiple co-morbidities. Rest of plan per hospitalist and other consultants. Thank you, XIOMARA Wright, for allowing me to participate in this patient's care. Further recommendations will depend on the patient's clinical course. Please do not hesitate to contact me if you have any questions or concerns. This medical document was created using an electronic medical record system with [employer] dictation system. Although these documentations are being carefully reviewed, there may still be some phonetic and typographical changes. The errors are purely typographical, due to imperfection on the software program, and do not reflect any compromise in the patient's medical care. Plan discussed with: Patient, Other (RN) AYANA BASSETT MD May 19, 2024 23:00
[2024-05-20] VITALS (11 sets, daily range): BP systolic 126; BP diastolic 85–87; PULSE 71–91; RESP 14–22; TEMP 98; O2SAT 89–96
[2024-05-20] MEDS: IPRATROPIUM BROM 0.5 MG/2.5ML INH SOL ONE ×2 (06:40→09:11)
[2024-05-20] MEDS: ALBUTEROL SULF 2.5 MG/0.5ML(0.5%) NEB SOLN ONE ×2 (06:40→09:11)
--- NOTE | 2024-05-20 08:23 | DVHPN2 ---
Reviewed: Care Plan, H&P, Labs, Medications, Previous Orders, Radiology Changes from previous H/P or p: No Changes Eyes: No Pain, No Vision change, No Conjunctivae inflammation, No Eyelid inflammation, No Other, No Redness ENT: No Ear pain, No Ear discharge, No Nose pain, No Nose discharge, No Nose congestion, No Mouth pain, No Mouth swelling, No Throat pain, No Throat swelling, No Other Cardiovascular: No Chest Pain, No Palpitations, No Orthopnea, No Paroxysmal Noc. Dyspnea, No Edema, No Lt Headedness, No Other Respiratory: No Cough, No Dry; Shortness of breath, SOB with excertion; No Wheezing, No Hemoptysis, No Pleuritic Pain, No Sputum, No Other Gastrointestinal: No Nausea, No Vomiting, No Abdominal Pain, No Diarrhea, No Constipation, No Melena, No Hematochezia, No Other Genitourinary: No Dysuria, No Frequency, No Incontinence, No Hematuria, No Retention, No Other Musculoskeletal: No other, No neck pain, No shoulder pain, No arm pain, No back pain, No hand pain, No leg pain, No foot pain Skin: No Rash, No Lesions, No Jaundice, No Bruising, No Other Objective Vitals Vital Signs Date Time Temp Pulse Resp B/P (MAP) Pulse Ox O2 Delivery O2 Flow Rate FiO2 05/20/24 08:07 78 16 95 05/20/24 07:59 Oxymizer 8.0 05/20/24 07:59 N/A 05/20/24 07:30 129/82 (98) 05/19/24 20:00 99.0 99.0 Medications Current Medications Medications Dose Ordered Sig/Melvin Route Start Time Stop Time Status Last Admin Dose Admin Ceftriaxone Sodium 50 ml @ 100 mls/hr DAILY@09 IV 05/15/24 09:00 05/19/24 09:00 100 MLS/HR Albuterol 2.5 mg Q4HWA [facility] 05/14/24 14:00 05/20/24 07:59 2.5 MG Ipratropium [place] 0.5 mg Q4HWA [facility] 05/14/24 14:00 05/20/24 07:59 0.5 MG Methylprednisolone Sodium Succinate 40 mg DAILY IV 05/15/24 10:00 05/19/24 10:04 40 MG Azithromycin 500 mg DAILY PO 05/15/24 10:00 05/19/24 10:04 500 MG Acetaminophen/ Hydrocodone Bitart 1 tab Q4HP PRN PO 05/14/24 14:00 05/18/24 04:34 1 TAB Ondansetron HCl 4 mg Q4HP PRN IV 05/14/24 14:00 05/18/24 21:33 4 MG Docusate Sodium 100 mg BIDPRN PRN PO 05/14/24 14:00 Zinc Sulfate 220 mg DAILY PO 05/15/24 10:00 05/19/24 10:04 220 MG Ascorbic Acid 500 mg BID PO 05/14/24 22:00 05/19/24 22:57 500 MG Multivitamins 1 tab DAILY PO 05/15/24 10:00 05/19/24 10:00 1 TAB Acetaminophen 650 mg Q6HP PRN PO 05/14/24 14:00 05/19/24 08:02 650 MG Morphine Sulfate 2 mg Q4HPRN PRN IV 05/14/24 14:00 05/19/24 04:16 2 MG Pramipexole Dihydrochloride 0.75 mg BID PO 05/15/24 10:00 05/19/24 22:57 0.75 MG Lorazepam 0.5 mg Q8HP PRN PO 05/14/24 22:45 05/17/24 22:32 0.5 MG Clopidogrel Bisulfate 75 mg DAILY PO 05/17/24 10:00 05/18/24 10:40 75 MG Apixaban 5 mg BID PO 05/16/24 22:00 05/19/24 22:57 5 MG Flecainide Acetate 50 mg Q12HR PO 05/16/24 22:00 05/19/24 22:57 50 MG Metoprolol Succinate 25 mg DAILY PO 05/17/24 10:00 05/19/24 10:00 25 MG Hydralazine HCl 10 mg Q6HP PRN IV 05/16/24 11:00 Venlafaxine HCl 150 mg DAILY PO 05/17/24 07:00 05/19/24 12:17 150 MG Famotidine 20 mg Q12HR PO 05/19/24 22:00 05/19/24 22:57 20 MG Laboratory Results Laboratory Tests 05/17/24 05:30 Urinalysis Test 05/16/24 21:30 Urine Color Light-yellow (Yellow) Urine Clarity Clear (Clear) Urine pH 5.5 (5.0-9.0) Urine Specific [place] 1.021 (1.001-1.035) Urine Protein Trace (Negative) H Urine Ketones Negative (Negative) Urine Blood 1+ /uL (Negative) H Urine Nitrite Negative (Negative) Urine Bilirubin Negative (Negative) Urine Urobilinogen Normal mg/dL (Negative) Urine Leukocyte Esterase 2+ /uL (Negative) Urine RBC 67 /hpf (0 - 3) Urine WBC 68 /hpf (0 - 3) Urine Squamous Epithelial Cells Few /hpf (<5) Urine Bacteria Few /hpf (None Seen) H Urine Mucus Few (None Seen) Urine Yeast (Budding) Occasional /hpf (None Urine Glucose Normal mg/dL (Normal) Labs and/or images reviewed: Labs reviewed by me, Image(s) reviewed by me Assessment/Plan Assessment/Plan Acute hypoxic respiratory failure: Oxygen 8L by Oxymizer Acute COPD exacerbation: Albuterol Atrovent Solu-Medrol consult for Dr. Tarango appreciated Acute CHF exacerbation: Lasix consult for Dr. Vázquez appreciated, troponin negative x3 Paroxysmal AFib on flecainide and Eliquis History of coronary artery disease with stents 2009 and 2012 on Plavix cardiology consult by Dr.Al Vega appreciated Hypertension Hypercholesterolemia Left lower lobe community-acquired pneumonia: Rocephin azithromycin Kate test negative Flu test negative History of left lithotripsy 20 years ago Acute hypokalemia potassium 3.0, replace potassium Morbid obesity Time spent 55 minutes Patient is full code Advanced care planning time 20 minutes Stable for transfer to [place] Orders placed for transfer to [place] Examined today: No new complaint 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
[2024-05-20 08:51] LABS: Hematocrit 39.7 % (41.0-53.0); Hemoglobin 12.7 g/dL (13.5-17.5); Mean Corpuscular Hemoglobin 28.5 pg (28.0-32.0); Mean Corpuscular Volume 89.2 fL (80.0-100.0); Platelet Count (auto) 280 10^3/uL (140-450); Red Blood Cells 4.45 10^6/uL (4.5-5.90); Red Cell Distribution Width 15.7 % (11.8-14.3); White Blood Cell 12.3 10^3/uL (4.4-10.8)
[2024-05-20 08:55] LABS: Basophils % (manual) 0 (0.0-2.0); Blast Cells 0; Eosinophils % (manual) 0 (0-7); Metamyelocytes % 0; Myelocytes % 0; Promyelocytes % 0; Reactive Lymphocytes 0
[2024-05-20 09:07] LABS: Alanine Aminotransferase 19 U/L (7-40); Albumin 3.8 g/dL (3.2-4.8); Alkaline Phosphatase 104 U/L (46-116); Anion Gap 7 (5-15); Bilirubin, Total 0.6 mg/dL (0.2-1.0); Calcium 9.4 mg/dL (8.7-10.4); Chloride 105 mmol/L (98-107); Glucose 82 mg/dL (74-106); Sodium 144 mmol/L (136-145); Total Protein 5.8 g/dL (5.7-8.2)
[2024-05-20 09:09] LABS: Aspartate Aminotransferase < 8 U/L (13-40); Carbon Dioxide 32 mmol/L (20-31)
[2024-05-20 09:18] LABS: BUN/Creatinine Ratio 21.6 (10.0-20.0); Blood Urea Nitrogen 16 mg/dL (9-23)
[2024-05-20 09:36] LABS: Anisocytosis Slight; Band Neutrophils % (manual) 1; Lymphocytes % (manual) 22 (10.0-50.0); Monocytes % (manual) 9 (0-12); Platelet Estimate Adequate
--- NOTE | 2024-05-20 15:51 | DVHPN2 ---
Progress Note - Dictate Date Seen: May 20, 2024 Medical Necessity Reason Pt with a Central, PICC or Fol: No Subjective Patient seen and examined at bedside. Remains on supplemental oxygen Overnight events reviewed. vital signs Vital Sign Date Time Temp Pulse Resp B/P (MAP) Pulse Ox O2 Delivery O2 Flow Rate FiO2 05/20/24 14:51 98.0 74 18 127/84 (98) 93 98.0 05/20/24 13:27 7.0 58 05/20/24 09:56 Oxymizer medications Current Medications Medications Dose Ordered Sig/Melvin Route Start Time Stop Time Status Last Admin Dose Admin Ceftriaxone Sodium 50 ml @ 100 mls/hr DAILY@09 IV 05/15/24 09:00 05/20/24 09:00 100 MLS/HR Albuterol 2.5 mg Q4HWA NEB 05/14/24 14:00 05/20/24 09:56 2.5 MG Ipratropium Quinn 0.5 mg Q4HWA NEB 05/14/24 14:00 05/20/24 09:56 0.5 MG Methylprednisolone Sodium Succinate 40 mg DAILY IV 05/15/24 10:00 05/20/24 10:08 40 MG Azithromycin 500 mg DAILY PO 05/15/24 10:00 05/20/24 10:00 500 MG Acetaminophen/ Hydrocodone Bitart 1 tab Q4HP PRN PO 05/14/24 14:00 05/18/24 04:34 1 TAB Ondansetron HCl 4 mg Q4HP PRN IV 05/14/24 14:00 05/18/24 21:33 4 MG Docusate Sodium 100 mg BIDPRN PRN PO 05/14/24 14:00 Zinc Sulfate 220 mg DAILY PO 05/15/24 10:00 05/20/24 10:00 220 MG Ascorbic Acid 500 mg BID PO 05/14/24 22:00 05/20/24 10:00 500 MG Multivitamins 1 tab DAILY PO 05/15/24 10:00 05/20/24 10:00 1 TAB Acetaminophen 650 mg Q6HP PRN PO 05/14/24 14:00 05/19/24 08:02 650 MG Morphine Sulfate 2 mg Q4HPRN PRN IV 05/14/24 14:00 05/19/24 04:16 2 MG Pramipexole Dihydrochloride 0.75 mg BID PO 05/15/24 10:00 05/20/24 10:00 0.75 MG Lorazepam 0.5 mg Q8HP PRN PO 05/14/24 22:45 05/17/24 22:32 0.5 MG Clopidogrel Bisulfate 75 mg DAILY PO 05/17/24 10:00 05/20/24 10:00 75 MG Apixaban 5 mg BID PO 05/16/24 22:00 05/20/24 10:00 5 MG Flecainide Acetate 50 mg Q12HR PO 05/16/24 22:00 05/20/24 10:00 50 MG Metoprolol Succinate 25 mg DAILY PO 05/17/24 10:00 05/20/24 10:00 25 MG Hydralazine HCl 10 mg Q6HP PRN IV 05/16/24 11:00 Venlafaxine HCl 150 mg DAILY PO 05/17/24 07:00 05/20/24 10:00 150 MG Famotidine 20 mg Q12HR PO 05/19/24 22:00 05/20/24 10:00 20 MG objective Gen.: Patient lying in bed in no apparent distress. On supplemental oxygen. Head: Normocephalic, atraumatic. Eyes: EOMI/PERRLA. Ears: Normal hearing. Normal anatomy. Neck/trachea: Trachea midline, supple. Nose: Normal external anatomy. Mouth: Moist mucous membranes. Chest: Decreased air entry bilaterally. No wheezing or rhonchi. Cardiovascular: Positive S1, positive S2. Regular rate and rhythm. Abdomen: Positive bowel sounds in all 4 quadrants. Soft, non-tender, non- distended. : Deferred. Rectal: Deferred. Skin: Warm, dry. Intact. Extremities: 2+ radial pulses bilaterally. No lower extremity edema. Neuro: Awake, alert, oriented x3. No gross motor or sensory deficits. Cranial nerves II through XII intact. Gait not assessed. laboratory and microbiology Laboratory Tests 05/20/24 08:32 Test 05/20/24 08:32 Range/Units Serum Glucose 82 74-106 mg/dL Assessment/Plan Impression: Acute hypoxic respiratory failure 2/2 AE COPD Acute exacerbation of COPD Hypokalemia Pneumonia, likely gram negative Hypernatremia Congestive heart failure Obstructive sleep apnea Hypertension Atelectasis Hx of nicotine dependence Obesity, BMI 30.3 Events: Remains on supplemental oxygen, 6 LPM Oxymizer Taper O2 as tolerated BiPAP PRN. Monitor respiratory status closely d/t high O2 requirements. Continue bronchodilators q.4 hours Continue IV steroids Continue antibiotics MVI Incentive spirometry Diurese to maintain euvolemia Monitor renal function. Patient is stable from the pulmonary standpoint for transfer to [facility]. Awaiting transfer to [facility]. Labs and imaging reviewed. Rest of plan as noted below. Plan: Supplemental oxygen On 6 LPM Oxymizer Titrate to keep O2 sats above 92%. Taper O2 as tolerated. BiPAP at night for HEIDY Continue bronchodilators. Continue antibiotics F/u cultures IV steroids Incentive spirometry CXR demonstrates retrocardiac opacities. Diurese as tolerated Maintain euvolemia Monitor renal function. Monitor electrolytes. Supplement as necessary. Monitor ins and outs. DVT prophylaxis. Prognosis: Poor given patient's multiple co-morbidities. Rest of plan per hospitalist and other consultants. Thank you, XIOMARA Wright, for allowing me to participate in this patient's care. Further recommendations will depend on the patient's clinical course. Please do not hesitate to contact me if you have any questions or concerns. This medical document was created using an electronic medical record system with [employer] dictation system. Although these documentations are being carefully reviewed, there may still be some phonetic and typographical changes. The errors are purely typographical, due to imperfection on the software program, and do not reflect any compromise in the patient's medical care. Plan discussed with: Patient, Other (RAMANDEEP Mayorga) AYANA BASSETT MD May 20, 2024 15:51
== END 2024-05-20 20:43 | disposition short-term general hospital (02) | DRG 871 ==
LOC: ER 07:53 → EDBD 07:53 → TELE 13:49
PROVIDERS: ATTEND Family Medicine
PROC: 5A09357 Assistance with Respiratory Ventilation, Less than 24 Consecutive Hours, Continuous Positive Airway Pressure (ICD-10-PCS; principal; 2024-05-15)
PROC: 5A09357 Assistance with Respiratory Ventilation, Less than 24 Consecutive Hours, Continuous Positive Airway Pressure (ICD-10-PCS; 2024-05-16)
PROC: 5A0935A Assistance with Respiratory Ventilation, Less than 24 Consecutive Hours, High Flow/Velocity Cannula (ICD-10-PCS; 2024-05-16)
PROC: 5A09357 Assistance with Respiratory Ventilation, Less than 24 Consecutive Hours, Continuous Positive Airway Pressure (ICD-10-PCS; 2024-05-18)
PROC: 5A09357 Assistance with Respiratory Ventilation, Less than 24 Consecutive Hours, Continuous Positive Airway Pressure (ICD-10-PCS; 2024-05-19)
DX: A41.50 Gram-negative sepsis, unspecified (principal); J15.69 Pneumonia due to other Gram-negative bacteria; J96.21 Acute and chronic respiratory failure with hypoxia; J44.1 Chronic obstructive pulmonary disease with (acute) exacerbation; E87.0 Hyperosmolality and hypernatremia; J44.0 Chronic obstructive pulmonary disease with (acute) lower respiratory infection; J98.11 Atelectasis; Z20.822 Contact with and (suspected) exposure to COVID-19; E87.6 Hypokalemia; I50.9 Heart failure, unspecified; I11.0 Hypertensive heart disease with heart failure; G47.33 Obstructive sleep apnea (adult) (pediatric); E66.01 Morbid (severe) obesity due to excess calories; E78.00 Pure hypercholesterolemia, unspecified; I48.0 Paroxysmal atrial fibrillation; E87.8 Other disorders of electrolyte and fluid balance, not elsewhere classified; I45.10 Unspecified right bundle-branch block; I25.10 Atherosclerotic heart disease of native coronary artery without angina pectoris; Z68.30 Body mass index [BMI] 30.0-30.9, adult; Z87.891 Personal history of nicotine dependence; Z88.8 Allergy status to other drugs, medicaments and biological substances; Z95.5 Presence of coronary angioplasty implant and graft; Z85.46 Personal history of malignant neoplasm of prostate; Z90.79 Acquired absence of other genital organ(s); Z99.81 Dependence on supplemental oxygen; Z79.01 Long term (current) use of anticoagulants
CPT/HCPCS: 36415; 36600; 71045; 80048; 80053; 81001; 82805; 83735; 83880; 84484; 85007; 85025; 85027; 87426; 87804; 93005; 93306; 94640; 94644; 94660; 96365; 96375; 99291; G0378; J1100; J2405